=== PATIENT | female | born 2000 | race Caucasian/White ===

== ENCOUNTER 2023-12-05 22:19 | Emergency (ER) | payer OTHER, SELFPAY ==
[2023-12-05 22:24] VITALS: BP 168/120
[2023-12-05 22:38] LABS: % Basophils 0.7 % (0-2); % Immature Granulocytes 0.5 % (0-0.5); % Lymphocytes 37.3 % (20.5-51.1); % Neutrophils 57.5 % (42.2-75.2); Absolute Basophils 0.1 10^3/uL (0-0.2); Absolute Immature Granulocytes 0.1 10^3/uL (0-0.05); Absolute Lymphocytes 6.6 10^3/uL (1.2-3.4); Absolute Monocytes 0.7 10^3/uL (0.1-0.6); Absolute Neutrophils 10.2 10^3/uL (1.4-6.5); Hematocrit 43.2 % (37.0-47.0); Mean Corpuscular Hgb 30.8 pg (27.0-31.0); Mean Corpuscular Volume 83.2 fL (81.0-99.0); Mean Platelet Volume 8.4 fL (7.4-10.4); Nucleated Red Blood Cells % 0 %; Platelet Count 526 10^3/uL (130-400); Red Blood Cell Count 5.19 10^6/uL (4.20-5.40); Red Cell Dist. Width 12.1 % (11.5-14.5); White Blood Cell Count 17.6 10^3/uL (4.8-10.8)
[2023-12-05] MEDS: ATIVAN 1 MG PO (22:43)
[2023-12-05 22:53] LABS: ALT (SGPT) 28 U/L (0-35); AST (SGOT) 48 U/L (14-36); Albumin 5.4 g/dl (3.5-5.0); Alkaline Phosphatase 86 U/L (38-126); Blood Urea Nitrogen 11 mg/dl (7-17); Calcium 9.3 mg/dl (8.4-10.2); Carbon Dioxide 17 mmol/L (22-30); Chloride 105 mmol/L (98-107); Glucose 102 mg/dl (70-99); Potassium 4.6 mmol/L (3.5-5.1); Sodium 137 mmol/L (135-145); Total Bilirubin 0.9 mg/dl (0.2-1.3); Total Protein 8.8 g/dl (6.3-8.2); eGFR > 60.00
[2023-12-05 23:03] LABS: Alcohol 332 mg/dl
[2023-12-05] MEDS: ZOFRAN 4 MG IV (23:39)
[2023-12-05] MEDS: NSS 1000 IV (23:40)
--- NOTE | 2023-12-05 23:41 | ED.GENMED ---
History of Present Illness
General
Chief Complaint: Alcohol Problem
Source: patient
Exam Limitations: none
Time Seen by Provider: 12/05/23 22:54
Travel History
Have you had any contact with someone who has COVID-19?: No
Do you have any symptoms of coronavirus? Fever > 100 degrees, chills, cough, shortness of breath, sore throat, loss of taste or smell, muscle aches, or headache?: No
History of Present Illness
History of Present Illness:
This is a 23 year old female that comes in with c/o alcohol withdraw. States that she just got out of 90 days of Rehab. States that she fell off the wagon and started drinking on . Patient and significant other states that she drinks 2
gallons of wine daily. States that she has been clean for 80 days. States that she is nauseated and vomiting, has a headache and dizziness. Denies any fever, chills, chest pain, SOB, diarrhea, urinary burning.
Past History
Past History
ED Past Medical History: Seizures, Psychiatric (Anxiety/depression) and Other (Alcohol abuse, alcohol withdrawal seizures, IBS, )
ED Past Surgical History: Orthopedic (Right knee)
Social History
Tobacco: Vaping
Alcohol: Daily (Wine 2-3 gallon bottles daily)
Drug: None
Personal: Single
Living: with family (Lives with significant other)
Employment: Not employed
Family History
Family History: Other (Both parents reportedly alcoholics)
Review of Systems
Review of Systems
All Other Systems: ROS reviewed and negative except as documented in HPI and ROS
Constitutional: Reports no symptoms; Denies fever or chills
EENT: Reports no symptoms
Respiratory: Reports no symptoms; Denies cough or trouble breathing
Cardiac: Reports no symptoms; Denies chest pain
ABD/GI: Reports nausea and vomiting; Denies abdominal pain or diarrhea
: Denies dysuria, frequency or urgency
Musculoskeletal: Reports no symptoms
Skin: Reports no symptoms
Neurological: Reports dizzy and headache
Psychiatric: Reports no symptoms
Phy Exam
General Physical Exam
General Presentation: no apparent distress (Patient stops gagging upon entering the room, Held a conversation without any nausea or vomiting)
General age: appears stated age
General Skin: warm and dry
General Habitus: normal
General Mental: alert
General Hydration: appears well hydrated
ENT Exam
ENT Exam: TM's normal, pharynx normal and neck supple
Eye Exam
Eye Exam: EOMI
Cardiovascular Exam
Cardiovascular Exam: no edema, no murmur, normal peripheral pulses and tachycardia
Pulmonary Exam
Pulmonary Exam: lungs clear, no respiratory distress, no rales, chest non tender, no crackles, no rhonchi, no wheezing and no cough
Gastrointestinal Exam
Gastrointestinal Exam: normal bowel sounds, non tender, soft, no organomegaly, no pulsatile mass and non distended
Musculoskeletal Exam
Musculoskeletal Exam: full ROM and no edema
Skin Exam
Skin Exam: normal color, warm/dry, no rash and no petechia
Psychiatric Exam
Psychiatric Exam: anxious
Scores
Withdrawal Assessment of Alcohol
Withdrawal Assessment Completed?: No
Course
Orders/Labs/Results
Orders:
Orders
12/05/23 22:32
Alcohol Urgent
CMP [Comprehensive Metabolic Panel] Urgent
Complete Blood Count/With Diff Urgent
HCG, Serum Qualitative Screen Urgent
Comment: ADD ON
12/05/23 22:42
Lorazepam [Ativan] 1 mg PO NOW STA
12/05/23 23:20
0.9% Sodium Chloride 1000 ml [Nss] 1,000 ml IV BOLUS
Ondansetron Injectable [Zofran] 4 mg IV NOW STA
12/05/23 23:40
Add On- LAB Urgent
Tests Added?: HCG
12/05/23 23:44
Pantoprazole [Protonix IV] 40 mg IV NOW STA
12/06/23 00:00
Diphenhydramine [Benadryl] 50 mg IV NOW STA
Prochlorperazine [Compazine] 5 mg IV NOW STA
Abnormal Lab Results
12/05/23
22:32
WBC 17.6 H 10^3/uL
(4.8-10.8)
Plt Count 526 H 10^3/uL
(130-400)
Abs Immat Gran (auto) 0.1 H 10^3/uL
(0-0.05)
Absolute Neuts (auto) 10.2 H 10^3/uL
(1.4-6.5)
Absolute Lymphs (auto) 6.6 H 10^3/uL
(1.2-3.4)
Absolute Monos (auto) 0.7 H 10^3/uL
(0.1-0.6)
Carbon Dioxide 17 L mmol/L
(22-30)
Creatinine 0.5 L mg/dL
(0.6-1.0)
Glucose 102 H mg/dl
(70-99)
AST 48 H U/L
(14-36)
Total Protein 8.8 H g/dl
(6.3-8.2)
Albumin 5.4 H g/dl
(3.5-5.0)
12/05/23 22:32
12/05/23 22:32
Leukocytosis, Plt elevated. carbon dioxide low. Glucose nonfasting, AST 3elevation. Total protein elevation. Albumin slightly elevated. Alcohol level 332
HCG negative
Vital Signs
Initial and Last Documented VS:
Initial Vital Signs
Temp Pulse Resp BP Pulse Ox
98.4 F 140 28 168/120 97
12/05/23 22:24 12/05/23 22:24 12/05/23 22:24 12/05/23 22:24 12/05/23 22:24
Last Documented Vital Signs
Temp Pulse Resp BP Pulse Ox
98.4 F 121 16 146/96 94
12/05/23 22:24 12/06/23 00:22 12/06/23 00:22 12/05/23 23:49 12/05/23 23:49
MDM/Problems Addressed
Differential Diagnosis Includes:
Alcohol intoxication, Alcohol abuse
MDM/Problems Addressed:
This is a 23 year old female that has been seen in the Emergency room before with alcohol abuse. States that she has been clean for 80 days and she fell off the wagon. Significant other states that she started to drink on and has been
drinking 2 gallon bottles of wine daily.
Will check labs, give IV fluids and Antiemetics. Patient was also given Ativan by Dr. Faustin
Patient decided that she was leaving AMA. Patient was not gagging or vomiting and able to walk out without any issues. States that she is going to another Hospital as she wanted Phenobarbital and that 'always works for her' States that she is going
to another Hospital. Weston saw patient and is walking with patient to talk with her in the waiting room.
Weston stated that patient did not want inpatient help and left.
Chronic conditions affecting care:
Chronic alcohol use
Acute Exacerbation and/or Progression of Chronic Illness:
Chronic alcohol abuse
*Pulse Oximetry
Patient hypoxic: no
*EKG
Interpreted by ED Provider?: NA
Rate: EKG- N/A
*Grader Meat Interpretation
Rate: Grader Meat- N/A
*Critical Care Note
Total Time (30-74mins, 75-104mins- exclusive of procedures): Not Applicable
ED Attending Note
-
Portions of this chart may have been created with voice recognition software.� Occasional wrong word or��sound alike� substitutions may have occurred due to the inherent limitations of voice recognition software.
Discharge Plan
Departure
Patient Disposition: Against Medical Advice
Date of Disposition: 12/06/23
Time of Disposition: 01:21
Patient with high blood pressure during this ER visit?: Yes
Condition: Good
Covid-19: Not Applicable
Discharge Problem:
Alcohol intoxication
Instructions: BLOOD PRESSURE, Alcohol Use Disorder (DC), Alcohol Intoxication ED
Prescriptions:
No Action
gabapentin 300 mg Capsule
300 mg PO BID
Patient Comments:
Was on 300 mg am 300 mg afternoon 600mg HS but prescription was running out so patient has been taking 300 mg HS
folic acid 1 mg tablet
1 mg PO DAILY
naltrexone 50 mg Tablet
50 mg PO DAILY
cyanocobalamin (vitamin B-12) 1,000 mcg Tablet
1,000 mcg PO DAILY
acetaminophen 325 mg Tablet
650 mg PO Q6HPRN PRN (Reason: mild pain/ fever>100.5F) Qty: 0 0RF
lidocaine 4 % Adhesive Patch,Medicated
1 patch topical DAILY Qty: 0 0RF
hydroxyzine HCl 25 mg Tablet
50 mg PO HS Qty: 0 0RF
Referrals:
NONE,* [Family Provider] -
Interventions
Interventions:
*Risk Screen - Suicide Last Done: 12/05/23 22:24
*Neglect/Abuse Screening Last Done: 12/05/23 22:24
ED- Fall Risk Assessment Last Done: 12/05/23 23:35
ED- Neurological Assessment Last Done: 12/05/23 23:35
ED-Psychological Assessment Last Done: 12/05/23 23:35
[2023-12-05 23:49] VITALS: BP 146/96
[2023-12-06] MEDS: BENADRYL 50 MG IV (00:15)
[2023-12-06] MEDS: PROTONIX IV 40 MG IV (00:17)
[2023-12-06] MEDS: COMPAZINE 5 MG IV (00:19)
[2023-12-06 00:21] VITALS: BP 113/52
[2023-12-06 00:53] LABS: HCG, Serum Qualitative Screen Negative
== END 2023-12-06 01:12 | disposition left against medical advice (07) ==
LOC: EMR 22:19
PROVIDERS: Emergency Medicine; EMERGENCY PHYSICIAN Emergency Medicine
DX: F10.129 Alcohol abuse with intoxication, unspecified (principal); F17.290 Nicotine dependence, other tobacco product, uncomplicated; R03.0 Elevated blood-pressure reading, without diagnosis of hypertension
CPT/HCPCS: 99284; 96374; 96375 ×3; 96361; 80053; 82077; 84703; 85025

== ENCOUNTER 2023-12-07 20:22 | Inpatient (IN) | payer OTHER, SELFPAY ==
[2023-12-07 16:42] VITALS: BP 138/109
--- NOTE | 2023-12-07 16:49 | ED.GENMED ---
History of Present Illness
<Sarah Thao PA-C - Last Filed: 12/07/23 19:48>
General
Chief Complaint: Alcohol Problem
Source: patient
Exam Limitations: none
Time Seen by Provider: 12/07/23 16:46
Nursing documentation reviewed up to this point in time: agreed with
Travel History
Have you had any contact with someone who has COVID-19?: No
Do you have any symptoms of coronavirus? Fever > 100 degrees, chills, cough, shortness of breath, sore throat, loss of taste or smell, muscle aches, or headache?: No
History of Present Illness
History of Present Illness:
23 year old female with a PMH of alcohol abuse, PTSD, anxiety, depression presenting emergency department today via EMS for concerns of alcohol abuse. Patient boyfriend called EMS because she was very intoxicated and she has been trying to get
help. Patient in the emergency department is very distraught and states that she is very depressed because she is trying to get help for her alcohol abuse but she keeps relapsing. Patient was out of rehab 3 months ago. Patient had one bottle of
wine to drink prior to coming to emergency department, she states that she usually has 1 bottle of wine per day. Patient has nausea, headache, chest pain. She denies any abdominal pain. Patient denies suicidal or homicidal ideation. Patient also
states that she feels flushed, and states that is very sensitive to light. Patient was seen here 2 days ago for the same thing. Patient also seen at [facility] emergency department.
Past History
<Sarah Thao PA-C - Last Filed: 12/07/23 19:48>
Past History
ED Past Medical History: Seizures, Psychiatric (Anxiety/depression) and Other (Alcohol abuse, alcohol withdrawal seizures, IBS, )
ED Past Surgical History: Orthopedic (Right knee)
Social History
Tobacco: Vaping
Alcohol: Daily (Wine 2-3 gallon bottles daily)
Drug: None
Personal: Single
Living: with family (Lives with significant other)
Employment: Not employed
Family History
Family History: Other (Both parents reportedly alcoholics)
Review of Systems
<Sarah Thao PA-C - Last Filed: 12/07/23 19:48>
Review of Systems
All Other Systems: ROS reviewed and negative except as documented in HPI and ROS
Phy Exam
<Sarah Thao PA-C - Last Filed: 12/07/23 19:48>
Physical Exam
Physical Exam:
Vitals: Patient is tachycardic and hypertensive
General: Patient appears anxious and is crying
Skin: Cheeks are flushed
Head: Normocephalic, atraumatic
Cardiac: Patient is tachycardic, no murmurs, no rubs
Pulm: Normal respiratory effort, no wheezes, rales, or rhonchi
Abdomen: Abdomen is nontender to palpation
Neuro: AAOx3. CN II-XII intact. No focal neurologic deficits.
Scores
<Sarah Thao PA-C - Last Filed: 12/07/23 19:48>
Withdrawal Assessment of Alcohol
Withdrawal Assessment Completed?: Yes
Nausea and Vomiting: Mild nausea with no vomiting
Tactile Disturbances: Moderate itching, pins and needles , burning or numbness
Tremor: No tremor
Auditory Disturbances: Not present
Paroxysmal Sweats: No sweat visible
Visual Disturbances: Moderate sensitivity (photophobia)
Anxiety: Moderately anxious, or guarded, so anxiety is inferred
Headache, Fullness in Head: Moderate
Agitation: Moderately fidgety and restless
Orientation and clouding of sensorium: Oriented and can do serial additions
Total CIWA Score: 18
Alcohol Withdrawal Medication Recommendation: Equal to MSAS Score 8-11. Lorazepam 1-2mg IV NOW & re-assess q1hr
<Angelo Loyola DO - Last Filed: 12/07/23 21:01>
Withdrawal Assessment of Alcohol
Total CIWA Score: 18
Alcohol Withdrawal Medication Recommendation: Equal to MSAS Score 8-11. Lorazepam 1-2mg IV NOW & re-assess q1hr
Course
<Sarah Thao PA-C - Last Filed: 12/07/23 19:48>
Orders/Labs/Results
Orders:
Orders
12/07/23 17:16
Alcohol Urgent
Complete Blood Count/With Diff Urgent
Comprehensive Metabolic Panel Urgent
12/07/23 17:22
Lorazepam [Ativan] 1 mg IV NOW STA
12/07/23 18:29
0.9% Sodium Chloride 1000 ml [Nss] 1,000 ml IV BOLUS
12/07/23 18:49
0.9% Sodium Chloride 1000 ml [Nss] 1,000 ml IV BOLUS
12/07/23 19:01
Prochlorperazine [Compazine] 5 mg IV NOW STA
12/07/23 19:17
Electrocardiogram (*1) Urgent
Reason for Study: Chest Pain
EKG- Treatment ONCE
12/07/23 19:34
Troponin I Urgent
12/07/23 19:57
Admit/Transfer Patient As Directed
Co-Sign Provider:
Level of Care: Inpatient admission
Assign to:: IMU- Intermediate Care
Physician / Group: suresh
Diagnosis: alcohol withdrawal
Reason for Hospitalization: alcohol withdrawal
Expected length of stay greater than two midnights?: Yes
ELOS- Estimated Length of Stay in days: 2
I certify the patient meets the requirements for IP care: Yes
Code Status As Directed
Resuscitation Status: Full Code
12/07/23 20:03
B-Hydroxybutyrate Urgent
Magnesium Urgent
Phosphorus Urgent
0.9% Sodium Chloride [Nss (Preservative Free)] See Protocol IV PRN PRN
FOLic ACID [Folvite] 1 mg 0.9% Sodium Chloride 50 ml [Nss] 50 ml IV DAILYPRN
Lorazepam [Ativan] 1 mg IV Q1HPRN PRN
Lorazepam [Ativan] 1 mg PO Q2HPRN PRN
Lorazepam [Ativan] 2 mg IV Q1HPRN PRN
Phenobarbital Sodium [Phenobarbital] 260 mg 0.9% Sodium Chloride 100 ml [Nss] 100 ml IV NOW
MSAS SCORE As Directed
MSAS Score 0-4: Repeat MSAS every 2 hours until 0-4 for three consecutive assessments, then every 4 hours x 48
hours.
MSAS Score 5-7: For MILD withdrawl symptoms. Repeat MSAS and RASS every 2 hours
MSAS Score 8-11: For MODERATE withdrawal symptoms. Repeat MSAS and RASS every 1 hour. Consider ICU or IMU
level of care.
MSAS Score > 11: For SEVERE withdrawal symptoms. Repeat MSAS and RASS every 1 hour. Notify provider, consider
ICU level of care.
MSAS Additional Instructions: If no improvement or no decrease in score from severe to moderate within 12
hours, consult psychiatry
MSAS Notify Provider: Notify provider if patient requires more than 10 mg of Lorazepam in eight hour period.
12/07/23 20:05
Sodium Bicarbonate 50 meq IV NOW STA
12/07/23 20:06
Pantoprazole [Protonix] 40 mg PO DAILY STA
12/07/23 21:00
Dextrose 5%/0.9%Sodchl 1000 ml [D5/0.9% Sodium Chloride] 1,000 ml IV 100 mls/hr
Thiamine Injection 200 mg IV Q12
12/08/23 08:00
FOLic ACID [Folvite] 1 mg PO DAILY
Phenobarbital Sodium [Phenobarbital] 97.5 mg IV TID
12/10/23 08:00
Phenobarbital [Luminal] 64.8 mg PO TID
12/10/23 20:00
Thiamine HCl [Vitamin B1] 100 mg PO BID
12/12/23 08:00
Phenobarbital [Luminal] 32.4 mg PO TID
Abnormal Lab Results
12/07/23
17:16
Plt Count 460 H 10^3/uL
(130-400)
Absolute Lymphs (auto) 5.0 H 10^3/uL
(1.2-3.4)
Neutrophils % 39.8 L %
(42.2-75.2)
Lymphocytes % 54.7 H %
(20.5-51.1)
Carbon Dioxide 14 L* mmol/L
(22-30)
Creatinine 0.5 L mg/dL
(0.6-1.0)
AST 45 H U/L
(14-36)
Total Protein 8.4 H g/dl
(6.3-8.2)
Albumin 5.2 H g/dl
(3.5-5.0)
12/07/23 17:16
12/07/23 17:16
Vital Signs
Initial and Last Documented VS:
Initial Vital Signs
Temp Pulse Resp BP Pulse Ox
97.9 F 117 16 138/109 95
12/07/23 16:42 12/07/23 16:42 12/07/23 16:42 12/07/23 16:42 12/07/23 16:42
Last Documented Vital Signs
Temp Pulse Resp BP Pulse Ox
97.9 F 117 16 138/109 93
12/07/23 16:42 12/07/23 16:42 12/07/23 16:42 12/07/23 16:42 12/07/23 16:42
<Angelo Loyola, DO - Last Filed: 12/07/23 21:01>
Orders/Labs/Results
Orders:
Orders
12/07/23 17:16
Alcohol Urgent
Complete Blood Count/With Diff Urgent
Comprehensive Metabolic Panel Urgent
12/07/23 17:22
Lorazepam [Ativan] 1 mg IV NOW STA
12/07/23 18:29
0.9% Sodium Chloride 1000 ml [Nss] 1,000 ml IV BOLUS
12/07/23 18:49
0.9% Sodium Chloride 1000 ml [Nss] 1,000 ml IV BOLUS
12/07/23 19:01
Prochlorperazine [Compazine] 5 mg IV NOW STA
12/07/23 19:17
Electrocardiogram (*1) Urgent
Reason for Study: Chest Pain
EKG- Treatment ONCE
12/07/23 19:34
Troponin I Urgent
12/07/23 19:57
Admit/Transfer Patient As Directed
Co-Sign Provider:
Level of Care: Inpatient admission
Assign to:: IMU- Intermediate Care
Physician / Group: suresh
Diagnosis: alcohol withdrawal
Reason for Hospitalization: alcohol withdrawal
Expected length of stay greater than two midnights?: Yes
ELOS- Estimated Length of Stay in days: 2
I certify the patient meets the requirements for IP care: Yes
Code Status As Directed
Resuscitation Status: Full Code
12/07/23 20:03
B-Hydroxybutyrate Urgent
Magnesium Urgent
Phosphorus Urgent
0.9% Sodium Chloride [Nss (Preservative Free)] See Protocol IV PRN PRN
FOLic ACID [Folvite] 1 mg 0.9% Sodium Chloride 50 ml [Nss] 50 ml IV DAILYPRN
Lorazepam [Ativan] 1 mg IV Q1HPRN PRN
Lorazepam [Ativan] 1 mg PO Q2HPRN PRN
Lorazepam [Ativan] 2 mg IV Q1HPRN PRN
Phenobarbital Sodium [Phenobarbital] 260 mg 0.9% Sodium Chloride 100 ml [Nss] 100 ml IV NOW
MSAS SCORE As Directed
MSAS Score 0-4: Repeat MSAS every 2 hours until 0-4 for three consecutive assessments, then every 4 hours x 48
hours.
MSAS Score 5-7: For MILD withdrawl symptoms. Repeat MSAS and RASS every 2 hours
MSAS Score 8-11: For MODERATE withdrawal symptoms. Repeat MSAS and RASS every 1 hour. Consider ICU or IMU
level of care.
MSAS Score > 11: For SEVERE withdrawal symptoms. Repeat MSAS and RASS every 1 hour. Notify provider, consider
ICU level of care.
MSAS Additional Instructions: If no improvement or no decrease in score from severe to moderate within 12
hours, consult psychiatry
MSAS Notify Provider: Notify provider if patient requires more than 10 mg of Lorazepam in eight hour period.
12/07/23 20:05
Sodium Bicarbonate 50 meq IV NOW STA
12/07/23 20:06
Pantoprazole [Protonix] 40 mg PO DAILY STA
12/07/23 21:00
Dextrose 5%/0.9%Sodchl 1000 ml [D5/0.9% Sodium Chloride] 1,000 ml IV 100 mls/hr
Thiamine Injection 200 mg IV Q12
12/08/23 08:00
FOLic ACID [Folvite] 1 mg PO DAILY
Phenobarbital Sodium [Phenobarbital] 97.5 mg IV TID
12/10/23 08:00
Phenobarbital [Luminal] 64.8 mg PO TID
12/10/23 20:00
Thiamine HCl [Vitamin B1] 100 mg PO BID
12/12/23 08:00
Phenobarbital [Luminal] 32.4 mg PO TID
Abnormal Lab Results
12/07/23
17:16
Plt Count 460 H 10^3/uL
(130-400)
Absolute Lymphs (auto) 5.0 H 10^3/uL
(1.2-3.4)
Neutrophils % 39.8 L %
(42.2-75.2)
Lymphocytes % 54.7 H %
(20.5-51.1)
Carbon Dioxide 14 L* mmol/L
(22-30)
Creatinine 0.5 L mg/dL
(0.6-1.0)
AST 45 H U/L
(14-36)
Total Protein 8.4 H g/dl
(6.3-8.2)
Albumin 5.2 H g/dl
(3.5-5.0)
12/07/23 17:16
12/07/23 17:16
Vital Signs
Initial and Last Documented VS:
Initial Vital Signs
Temp Pulse Resp BP Pulse Ox
97.9 F 117 16 138/109 95
12/07/23 16:42 12/07/23 16:42 12/07/23 16:42 12/07/23 16:42 12/07/23 16:42
Last Documented Vital Signs
Temp Pulse Resp BP Pulse Ox
97.9 F 117 16 138/109 93
12/07/23 16:42 12/07/23 16:42 12/07/23 16:42 12/07/23 16:42 12/07/23 16:42
<Sarah Thao PA-C - Last Filed: 12/07/23 19:48>
MDM/Problems Addressed
Differential Diagnosis Includes:
Differentials include alcohol intoxication, alcohol withdrawal, panic attack, ACS, SCAD
MDM/Problems Addressed:
chest pain
alcoholism
Chronic conditions affecting care: Psychiatric illness
Acute Exacerbation and/or Progression of Chronic Illness: Psychiatric illness
<aSrah Thao PA-C - Last Filed: 12/07/23 19:48>
*Critical Care Note
Total Time (30-74mins, 75-104mins- exclusive of procedures): Not Applicable
<Sarah Thao PA-C - Last Filed: 12/07/23 19:48>
Patient Management
Escalation/DeEscalation of care consider admission/obs:
23 y/o female with a PMH of alcohol abuse, PTSD, depression presenting to the ER today via EMS seeking treatment for her alcohol abuse. She is tachycardia, her CIWA is 18, her bicarb is 14. She has a history of severe withdrawal. Spoke to Amy
who found a bed for patient however patient is at high risk for withdrawal and she needs to be medically stabilized and needs to be monitored. Will admit for observation and frequent withdrawal monitoring. Patient accepted by hospitalist.
<Sarah Thao PA-C - Last Filed: 12/07/23 19:48>
Update Note
Update Note:
5:00 pm-- Spoke to Amy who
ED Attending Note
<Sarah Thao PA-C - Last Filed: 12/07/23 19:48>
-
Portions of this chart may have been created with voice recognition software.� Occasional wrong word or��sound alike� substitutions may have occurred due to the inherent limitations of voice recognition software.
<Angelo Loyola DO - Last Filed: 12/07/23 21:01>
ED Attending Note
Patient seen and examined by attending physician: Yes
I performed the substantive portion of visit, reviewed & personally made and approve the management plan that is documented in note by myself or LEONEL.: Yes
I performed a history and physical exam of patient and discussed management with resident, I reviewed resident's note and agree with documented findings and plan of care.: Yes
ED Attending Note:
The patient has been agitated throughout her stay in the ED. She arrived tachycardic and bicarb only 14. Does not appear to be able to be medically clear tonight. She was also seen by AMY. Planning medical admission.
Discharge Plan
Departure
Patient Disposition: Admit
Date of Disposition: 12/07/23
Time of Disposition: 19:38
Admit to: Med/Surg
Admit to doctor: Dr. Villanueva
Presentation/result/management discussed w/ accepting MD/DO: Hospitalist
Patient with high blood pressure during this ER visit?: Yes
Condition: Fair
Discharge Problem:
Alcohol use disorder, Chest pain
Interventions
Interventions:
*Risk Screen - Suicide Last Done: 12/07/23 16:42
*General Assessment Last Done: 12/07/23 16:42
*Neglect/Abuse Screening Last Done: 12/07/23 16:42
*ED COVID-19 Vaccine History Last Done: 12/07/23 16:42
ED- Neurological Assessment Last Done: 12/07/23 17:25
ED-Psychological Assessment Last Done: 12/07/23 18:40
[2023-12-07 16:50] VITALS: BMI 34.7
[2023-12-07 17:24] LABS: % Basophils 1.4 % (0-2); % Eosinophils 0.3 % (0-6); % Immature Granulocytes 0.2 % (0-0.5); % Lymphocytes 54.7 % (20.5-51.1); % Monocytes 3.6 % (1.7-9.3); % Neutrophils 39.8 % (42.2-75.2); Absolute Basophils 0.1 10^3/uL (0-0.2); Absolute Monocytes 0.3 10^3/uL (0.1-0.6); Absolute Neutrophils 3.6 10^3/uL (1.4-6.5); Hemoglobin 14.9 g/dL (12.0-16.0); Mean Corp Hgb Conc. 36.3 g/dL (33.0-37.0); Mean Corpuscular Hgb 30.7 pg (27.0-31.0); Mean Corpuscular Volume 84.4 fL (81.0-99.0); Mean Platelet Volume 8.8 fL (7.4-10.4); Nucleated Red Blood Cells % 0 %; Platelet Count 460 10^3/uL (130-400); Red Blood Cell Count 4.86 10^6/uL (4.20-5.40); Red Cell Dist. Width 12.2 % (11.5-14.5); White Blood Cell Count 9.1 10^3/uL (4.8-10.8)
[2023-12-07] MEDS: ATIVAN 1 MG IV (17:38)
[2023-12-07 17:57] LABS: ALT (SGPT) 29 U/L (0-35); AST (SGOT) 45 U/L (14-36); Albumin 5.2 g/dl (3.5-5.0); Alcohol 389 mg/dl; Alkaline Phosphatase 82 U/L (38-126); Blood Urea Nitrogen 8 mg/dl (7-17); Calcium 9.2 mg/dl (8.4-10.2); Carbon Dioxide 14 mmol/L (22-30); Chloride 105 mmol/L (98-107); Estimated Creatinine Clearance > 125 ml/min; Glucose 88 mg/dl (70-99); Potassium 4.9 mmol/L (3.5-5.1); Sodium 141 mmol/L (135-145); Total Bilirubin 0.9 mg/dl (0.2-1.3); Total Protein 8.4 g/dl (6.3-8.2); eGFR > 60.00
[2023-12-07] MEDS: NSS 1000 IV ×2 (19:23→22:02)
[2023-12-07] MEDS: COMPAZINE 5 MG IV (19:23)
--- NOTE | 2023-12-07 20:07 | HPS.HSE ---
Family Physician
-
Family Physician: * NONE
Chief Complaint
-
alcohol withdrawal
History of Present Illness
23-year-old female past medical history of alcohol abuse, PTSD, anxiety, depression, alcohol withdrawal seizures, IBS, arrhythmias presenting for concerns for alcohol abuse. Patient's boyfriend called EMS because she was very intoxicated. Patient
is very depressed but she is trying to get help for her alcohol abuse she keeps relapsing. She was out of rehab 3 months ago. She usually has 3 bottles of wine per day which she had shortly prior to coming into the emergency room. She has nausea
and vomiting, headache, dizziness and chest pain and diarrhea and shaking tremors. She denies any abdominal pain. She states her depression has been worse recently but denies any suicidal or homicidal ideation.
Chest pain is worse when she moves. Denies pain like this before. She states that she has a history of cardiac arrhythmias which may have been atrial fibrillation.
She does vape but denies any other drugs.
Medical History
Past Medical History
Past Medical History: Reports Other ( alcohol abuse, PTSD, anxiety, depression, alcohol withdrawal seizures, IBS, arrhythmias)
Past Surgical History: Reports Orthopedic
Social History
Tobacco: Vaping
Alcohol: Daily
Drug: None
Family History
Family History: Not pertinent
Allergies / Home Medications
Allergies reflects when Allergies were last updated in [employer].
Home Medications with original date entered in [employer]
Allergy/Medication List:
Allergies
Allergy/AdvReac Type Severity Reaction Status Date / Time
No Known Allergies Allergy Verified 12/05/23 22:28
Home Medications
folic acid 1 mg tablet 1 mg PO DAILY Supplement 09/03/23
cyanocobalamin (vitamin B-12) 1,000 mcg tablet 1,000 mcg PO DAILY Supplement 09/19/23
naltrexone 50 mg tablet 50 mg PO HS Alcohol Use Disorder 09/19/23
bupropion HCl 300 mg 24 hr tablet, extended release 300 mg PO DAILY 12/07/23
gabapentin 600 mg tablet 600 mg PO TID 12/07/23
melatonin 10 mg tablet 10 mg PO HS PRN sleep 12/07/23
prazosin 1 mg capsule 1 mg PO HS 12/07/23
Review of Systems
-
History Source: Patient
A 12 point ROS was completed and negative except as noted: Yes
Constitutional: Reports No Symptoms
EENT: Reports No Symptoms
Respiratory: Reports No Symptoms
Cardiac: Reports See HPI
Abdomen/GI: Reports See HPI
: Reports No Symptoms
Musculoskeletal: Reports No Symptoms
Skin: Reports No Symptoms
Neurological: Reports No Symptoms
Endocrine: Reports No Symptoms
Hematologic/Lymphatic: Reports No Symptoms
Psych: Reports No Symptoms
Physical Exam
Vital Signs
Vital Signs
Temp Pulse Resp BP Pulse Ox
97.9 F 117 16 138/109 93
12/07/23 16:42 12/07/23 16:42 12/07/23 16:42 12/07/23 16:42 12/07/23 16:42
Physical Exam
General: Well Developed, Well Nourished and No Apparent Distress
HEENT: NormoCephalic, Moist mucous membranes and Atraumatic
Respiratory: Clear
Cardiac: S1/S2 and Regular Rhythm; No Murmur or Rub
GI: Soft, Non Tender, Non Distended and Normal Bowel Sounds; No Organomegaly
Rectal: Deferred by Provider
Musculoskeletal: No Clubbing, No Cyanosis and No Edema
Skin: No Rash
Neuro: Nonfocal/grossly intact
Laboratory Results
-
12/07/23 17:16
12/07/23 17:16
Laboratory Results
Total Bilirubin 0.9 mg/dl (0.2-1.3) 12/07/23 17:16
AST 45 U/L (14-36) H 12/07/23 17:16
ALT 29 U/L (0-35) 12/07/23 17:16
Alkaline Phosphatase 82 U/L (38-126) 12/07/23 17:16
Data Reviewed
-
Lab Data: Labs Reviewed by me
Old Records: Reviewed
Impression/Plan
-
IMPRESSION:
PLAN:
# Severe alcohol withdrawal
-Alcohol level of 390
-Phenobarbital protocol
-Alcohol withdrawal protocol
-Thiamine and folate
-IV fluids
-Check magnesium, phosphorus
-Check EKG
-Continue naltrexone, gabapentin, prazosin
-Patient interested in rehab and seen by Freddy walker
-Hold bupropion given history of alcohol withdrawal seizures
# Anion gap metabolic acidosis likely secondary to alcoholic ketoacidosis
-Check beta-hydroxybutyrate
-Give dose of bicarbonate
-D5 normal saline
# Chest pain likely due to alcohol gastritis/GERD
-Check EKG
-Troponin pending
-Protonix 40 daily
# Likely alcohol related diarrhea
# History of diarrhea predominant IBS
-Continue to monitor
History of alcohol withdrawal seizures
-Hold bupropion
History of arrhythmia
Anxiety/depression/PTSD
-Hold bupropion given history of heavy alcohol drinking and potential to lower seizure threshold
-Psychiatry consulted
Vaping history
Full code
DVT prophylaxis�heparin
Regular diet
[2023-12-07 20:15] LABS: Troponin I < 0.012 ng/ml
[2023-12-07] MEDS: PHENOBARBITAL 104 MG IV (20:39)
[2023-12-07] MEDS: SODIUM BICARBONATE 50 MEQ IV (20:57)
[2023-12-07] MEDS: PROTONIX 40 MG PO (20:57)
[2023-12-07 21:00] VITALS: BP 134/74
[2023-12-07] MEDS: THIAMINE INJECTION 200 MG IV (21:00)
[2023-12-07] MEDS: ATIVAN 1 MG PO (22:07)
[2023-12-07 22:43] LABS: Phosphorus 4.9 mg/dl (2.5-4.5)
[2023-12-07 22:45] LABS: B-Hydroxybutyrate 0.16 mmol/L (0.02-0.27)
[2023-12-08] VITALS (12 sets, daily range): BP systolic 93–138; BP diastolic 64–99; BMI 32.5
[2023-12-08] MEDS: D5/0.9% SODIUM CHLORIDE 1000 IV ×3 (00:35→20:13)
[2023-12-08] MEDS: REVIA 50 MG PO (01:12)
[2023-12-08] MEDS: ATIVAN 1 MG PO ×2 (01:12→03:19)
[2023-12-08] MEDS: HEPARIN 5000 UNITS SC ×3 (01:12→20:14)
[2023-12-08] MEDS: MINIPRESS 1 MG PO (01:12)
--- NOTE | 2023-12-08 02:14 | PTCARENOTE ---
Received pt from ED RN. Pt is AAOx3, anxious, MSAS (per protocol - see MAR). Sinus tach on the monitor. on RA O2 sat 94%, lungs clear. BRP x1. D5 NS infusing @ 100 ml/hr. Bed alarm in place. CHG in place. Pt is laying comfortable in bed with call
garcia in reach.
[2023-12-08] MEDS: ZOFRAN 4 MG IV ×3 (03:19→16:06)
[2023-12-08] MEDS: PHENOBARBITAL 97.5 MG IV ×3 (04:01→20:07)
[2023-12-08 04:33] LABS: % Basophils 0.8 % (0-2); % Eosinophils 0.1 % (0-6); % Immature Granulocytes 0.1 % (0-0.5); % Monocytes 5.9 % (1.7-9.3); % Neutrophils 49.1 % (42.2-75.2); Absolute Basophils 0.1 10^3/uL (0-0.2); Absolute Lymphocytes 3.8 10^3/uL (1.2-3.4); Absolute Monocytes 0.5 10^3/uL (0.1-0.6); Absolute Neutrophils 4.2 10^3/uL (1.4-6.5); Hematocrit 35.6 % (37.0-47.0); Hemoglobin 12.4 g/dL (12.0-16.0); Mean Corp Hgb Conc. 34.8 g/dL (33.0-37.0); Mean Corpuscular Hgb 30.2 pg (27.0-31.0); Mean Corpuscular Volume 86.8 fL (81.0-99.0); Nucleated Red Blood Cells % 0 %; Platelet Count 343 10^3/uL (130-400); Red Cell Dist. Width 11.9 % (11.5-14.5); White Blood Cell Count 8.6 10^3/uL (4.8-10.8)
[2023-12-08 05:06] LABS: ALT (SGPT) 22 U/L (0-35); AST (SGOT) 32 U/L (14-36); Alkaline Phosphatase 63 U/L (38-126); Blood Urea Nitrogen 8 mg/dl (7-17); Calcium 8.5 mg/dl (8.4-10.2); Carbon Dioxide 19 mmol/L (22-30); Chloride 105 mmol/L (98-107); Estimated Creatinine Clearance > 125 ml/min; Glucose 99 mg/dl (70-99); Potassium 4.1 mmol/L (3.5-5.1); Sodium 135 mmol/L (135-145); Total Bilirubin 1.2 mg/dl (0.2-1.3); Total Protein 6.5 g/dl (6.3-8.2); eGFR > 60.00
[2023-12-08] MEDS: ATIVAN 1 MG IV ×5 (05:23→20:09)
[2023-12-08] MEDS: NSS (PRESERVATIVE FREE) 0.25 ML IV (06:22)
[2023-12-08] MEDS: ATIVAN 2 MG IV (07:28)
[2023-12-08] MEDS: NSS (PRESERVATIVE FREE) 1 ML IV ×3 (07:28→15:53)
--- NOTE | 2023-12-08 08:12 | W.PN.HOSP.TC ---
Today's Communication/Plan
-
see bold
Assessment / Plan
Assessment / Plan
Pt seen and examined with nurse Jair Diaz present at bedside:
Gen: NAD, Awake and alert
Eyes: EOMI, PERRLA, no scleral icterus.
Neck: supple.
CV: tachy, reg rhythm, +S1/S2, no m/r/g.
Resp: CTAB, no rales, wheezes, or rhonchi.
Abd: +BS, soft, NT, ND
Skin: No rashes.
Neuro: CN 2-12 intact, non-focal, tremors in LEs.
Psych: slightly anxious
Severe alcohol withdrawal/DTs:
-Alcohol level of 390 on admission
-cont Phenobarbital protocol
-cont MSAS (thiamine/folate/PRN Ativan)
-Thiamine and folate
-cont IVFs
-Continue naltrexone, gabapentin, prazosin
-Patient interested in rehab and seen by Freddy walker
-Holding bupropion given history of alcohol withdrawal seizures
-currently pt asking for phenobarbital early. Will give Serax 15mg x 1 now.
Anion gap metabolic acidosis:
-likely secondary to alcoholic ketoacidosis
-beta-hydroxybutyrate normal
-Given a dose of bicarbonate
-improving with D5NS
Other problems:
Chest pain: likely due to alcohol gastritis/GERD, Troponin NEG, cont Protonix
h/o diarrhea predominant IBS
h/o alcohol withdrawal seizures: Holding bupropion
History of arrhythmia
Anxiety/depression/PTSD: Holding bupropion given history of heavy alcohol drinking and potential to lower seizure threshold. Psychiatry consulted.
Vaping history
Obesity due to excess calories
FULL/heparin
Anticipated Discharge: > 48 hours
Subjective/Interval History
-
Date of Service: December 08, 2023
Reports W/D sxs including tremors, hallucinations, diaphoresis.
Objective Data
-
Labs:
Laboratory Results
12/08/23
04:09
WBC 8.6
Hgb 12.4
Hct 35.6 L
Plt Count 343 D
Sodium 135
Potassium 4.1
Chloride 105
Carbon Dioxide 19 L
BUN 8
Creatinine 0.4 L
Glucose 99
Calcium 8.5
Total Bilirubin 1.2
AST 32
ALT 22
Alkaline Phosphatase 63
Vital Signs:
Vital Signs
Temp Pulse Resp BP Pulse Ox
98.2 F 151 23 93/64 96
12/08/23 03:52 12/08/23 06:00 12/08/23 06:00 12/08/23 06:00 12/08/23 06:00
I&O
12/07/23 12/08/23 12/09/23
06:59 06:59 06:59
Intake Total 700 / 700
Balance 700 / 700
[2023-12-08] MEDS: THIAMINE INJECTION 200 MG IV ×2 (08:33→20:12)
[2023-12-08] MEDS: VITAMIN B-12 1000 MCG PO (08:37)
[2023-12-08] MEDS: FOLVITE 1 MG PO (08:37)
[2023-12-08] MEDS: NEURONTIN 600 MG PO (08:37)
[2023-12-08] MEDS: FOLVITE PO (08:48)
--- NOTE | 2023-12-08 09:00 | PTCARENOTE ---
Patient received from historic sites supervisor. Patient resting comfortably in bed. AAO, VSS. Drowsy but arousable, MSAS was 9 at shift change and patient was restless. No complaints of pain, just nausea, Zofran given last at 318. D5NS @ 100mL/hr through
IV. Call garcia in reach.
[2023-12-08] MEDS: SERAX 15 MG PO (10:00)
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
[2023-12-08] MEDS: NEURONTIN 300 MG PO ×2 (15:45→23:14)
--- NOTE | 2023-12-08 16:27 | CM ---
Patient with Dx Severe alcohol withdrawal/DTs. Tox Screen; Etoh 389. Room air. Receiving IVF, IV Phenobarb, IV Ativan.
Met with patient and SO Cayden. Patient remained sleeping throughout.
The patient resides with her SO in a 2 story house.
The patient has been independent in ADLs and ambulation.
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
The patient has no DME or prior VN.
[facility] - [facility]
Cayden says that the patient recently did an Inpatient Etoh program with [facility] in Sep 2023. Since then the patient is doing an outpatient program with [facility] including group therapy and individual counseling. Cayden thinks
patient will want to resume.
Plan offer [facility] when patient not actively withdrawing.
[2023-12-08] MEDS: FLEXERIL 5 MG PO (17:58)
[2023-12-09] VITALS (7 sets, daily range): BP systolic 116–164; BP diastolic 81–119
[2023-12-09] MEDS: ATIVAN 1 MG IV ×3 (00:04→23:34)
[2023-12-09] MEDS: NSS (PRESERVATIVE FREE) 0.5 ML IV (02:09)
[2023-12-09] MEDS: PHENOBARBITAL 97.5 MG IV ×3 (05:21→20:18)
[2023-12-09] MEDS: ATIVAN 1 MG PO ×4 (05:21→22:13)
[2023-12-09] MEDS: ATIVAN 2 MG IV (06:12)
[2023-12-09] MEDS: D5/0.9% SODIUM CHLORIDE 1000 IV ×3 (06:16→17:29)
--- NOTE | 2023-12-09 07:44 | W.PN.HOSP.TC ---
Today's Communication/Plan
-
see bold
Assessment / Plan
Assessment / Plan
Pt seen and examined with nurse Adriane Martinez present at bedside:
Gen: NAD, Awake and alert
Eyes: EOMI, no scleral icterus.
Neck: supple.
CV: remains tachy, reg rhythm, +S1/S2, no m/r/g.
Resp: remains CTAB, no rales, wheezes, or rhonchi.
Abd: +BS, soft, NT, ND
Skin: No rashes.
Neuro: CN 2-12 intact, non-focal, tremors in LEs.
Psych: calm
Severe alcohol withdrawal/DTs:
-Alcohol level of 390 on admission
-cont Phenobarbital protocol
-cont MSAS (thiamine/folate/PRN Ativan)
-Thiamine and folate
-cont IVFs
-Continue naltrexone, gabapentin, prazosin
-Patient interested in rehab and seen by Freddy walker
-Holding bupropion given history of alcohol withdrawal seizures
Anion gap metabolic acidosis:
-likely secondary to alcoholic ketoacidosis
-beta-hydroxybutyrate normal
-Given a dose of bicarbonate
-improving with D5NS
Other problems:
Chest pain: likely due to alcohol gastritis/GERD, Troponin NEG, cont Protonix
h/o diarrhea predominant IBS
h/o alcohol withdrawal seizures: Holding bupropion
History of arrhythmia
Anxiety/depression/PTSD: Holding bupropion given history of heavy alcohol drinking and potential to lower seizure threshold. Psychiatry consulted.
Vaping history
Obesity due to excess calories
FULL/heparin
Anticipated Discharge: 24 - 48 hours
Subjective/Interval History
-
Date of Service: December 09, 2023
c/o abd pain and 'shakes.'
Objective Data
-
Vital Signs:
Vital Signs
Temp Pulse Resp BP Pulse Ox
98.9 F 112 15 130/119 98
12/09/23 07:34 12/09/23 06:00 12/09/23 06:00 12/09/23 06:00 12/09/23 06:00
I&O
12/08/23 12/09/23 12/10/23
06:59 06:59 06:59
Intake Total 700 / 700 1440 / 1440
Balance 700 / 700 1440 / 1440
[2023-12-09 09:06] LABS: Blood Urea Nitrogen 4 mg/dl (7-17); Calcium 8.3 mg/dl (8.4-10.2); Carbon Dioxide 23 mmol/L (22-30); Chloride 108 mmol/L (98-107); Estimated Creatinine Clearance > 125 ml/min; Glucose 140 mg/dl (70-99); Potassium 3.9 mmol/L (3.5-5.1); Sodium 134 mmol/L (135-145); eGFR > 60.00
[2023-12-09] MEDS: NEURONTIN 300 MG PO ×3 (09:06→20:17)
[2023-12-09] MEDS: FOLVITE 1 MG PO (09:06)
[2023-12-09] MEDS: VITAMIN B-12 1000 MCG PO (09:06)
[2023-12-09] MEDS: THIAMINE INJECTION 200 MG IV ×2 (09:07→20:18)
[2023-12-09] MEDS: HEPARIN 5000 UNITS SC ×2 (09:07→20:18)
--- NOTE | 2023-12-09 09:57 | PTCARENOTE ---
pt crying and wailing loudly, stating ' I can't do it'-when asked what is bothering her, she says 'pain, nausea, anxiety'-vague complaints, offered PRN Zofran but pt declines, stating 'it doesn't work'. Will assess MSAS score.
--- NOTE | 2023-12-09 10:11 | CM ---
Patient with Dx Severe alcohol withdrawal/DTs. Tox Screen; Etoh 389. Room air. Receiving IVF, IV Phenobarb, IV Ativan. [facility] protocol.
Spoke with patient this morning who agrees to speak with GREGORIO about her plans to resume [facility] Inpt or Outpt Etoh Rehab. She is not feeling well at present and agrees to speak with GREGORIO later today.
Spoke with GREGORIO [place]; she remembers this patient from her last admission in Sep 2023 for Etoh Use/withdrawal, and she was involved in her d/c plans to [facility]. [facility] or over the weekend.
Plan follow up with GREGORIO to confirm d/c plans.
[2023-12-09] MEDS: ZOFRAN 4 MG IV (10:51)
--- NOTE | 2023-12-09 11:24 | PTCARENOTE ---
Pt shrieking and retching, kicking legs in bed, asking for her 'hourly Ativan' shouting 'I can't do this', telling this RN that we are doing nothing for her and that warehouse shift supervisor was doing everything for her, stated this RN is letting her suffer, now
agreeable to try zofran, stated it 'doesn't ever work anyway' ...Drs. Reddy and Torsten updated. Education provided to patient on appropriate administration of medications. Stated this behavior is known to them -Dr. Corbett will assess when available.
PT asking this RN if she is over 'the worst of it' and stated that she might go home. Safe/restful environment attempted to be maintained, pt is throwing blankets around room and equipment on floor, taking her self off monitoring equipment.
Refusing to sit in chair, will not allow lights on or shades up. Continuing to monitor.
--- NOTE | 2023-12-09 11:57 | PTCARENOTE ---
Pt sleeping upon this assessment, awakened by this RN in the room, now pleasant and agreeable, calling RN 'sweetie' and cooperative. Will monitor.
--- NOTE | 2023-12-09 12:54 | W.PN.UPDATE ---
Update Note
Progress Note Update
patient seen chart reviewed. spoke with nursing. farhana has been upset much of the morning at one point talking about signing out ama. she was able to talk with me about some of her issues. she is very angry with herself for relapsing and she
became tearful for some moments. she felt in some ways things were really looking up in her life and then she used. . she has a bf who is kind and attentive. she has a job she likes. she had some sobriety and she wants to work towards being sober
again. she also expressed anger that she can't go out and go on a three day magallon as others her age can do. pointed out to her that they may be experiencing similar issues if going on a three day magallon is a way of life. we discussed here the
ravages of etoh on every body not just hers. she is iffy about going to inpatient. she could do intensive out pt treatment with aa/sponsor etc. what is important and what we discussed is that she has to work on recognizing and dealing with
triggers to alcohol. there needs to be a plan for the moment she is tempted to use and that is what she needs to work on whether in AA or elsewhere. no changes were made in her medication. continue as currently
--- NOTE | 2023-12-09 14:16 | PTCARENOTE ---
Pt downgraded to med surg. Sleeping since talking with Dr. Corbett. Continuing to monitor.
--- NOTE | 2023-12-09 17:23 | W.PN.UPDATE ---
Update Note
Progress Note Update
Contacted by nursing due to patient being inconsolable, yelling, crying - appears in distress and reporting seeing/feeling bugs. Is on MSAS protocol along with phenobarbital taper, recently received dose of ativan. Placed order for prn risperidone
0.5mg for managing agitation if patient is having distressing hallucinations. Although this is in context of alcohol withdrawal, given that she is already receiving the appropriate alcohol withdrawal treatment, may need short term antipsychotic to
help manage acute agitation.
[2023-12-09] MEDS: RISPERDAL M-TAB (ORALLY DISINTEGRATING) 0.5 MG PO (17:28)
[2023-12-09] MEDS: MELATONIN 10 MG PO (20:17)
[2023-12-10] MEDS: ATIVAN 1 MG PO ×4 (02:20→16:34)
[2023-12-10] MEDS: D5/0.9% SODIUM CHLORIDE 1000 IV (06:41)
[2023-12-10 07:00] VITALS: BP 144/109
[2023-12-10] MEDS: NEURONTIN 300 MG PO ×3 (08:18→20:53)
[2023-12-10] MEDS: LUMINAL 64.7999999999999972 MG PO (08:18)
[2023-12-10] MEDS: FOLVITE 1 MG PO (08:19)
[2023-12-10] MEDS: VITAMIN B-12 1000 MCG PO (08:19)
[2023-12-10] MEDS: HEPARIN 5000 UNITS SC ×2 (08:19→20:52)
[2023-12-10] MEDS: THIAMINE INJECTION 200 MG IV (08:19)
[2023-12-10 09:25] LABS: Blood Urea Nitrogen 5 mg/dl (7-17); Calcium 9.2 mg/dl (8.4-10.2); Carbon Dioxide 24 mmol/L (22-30); Chloride 103 mmol/L (98-107); Estimated Creatinine Clearance > 125 ml/min; Glucose 98 mg/dl (70-99); Potassium 3.9 mmol/L (3.5-5.1); Sodium 135 mmol/L (135-145); eGFR > 60.00
--- NOTE | 2023-12-10 10:28 | W.PN.HOSP.TC ---
Addendum entered and electronically signed by Franky Doyle MD 12/10/23 12:54:
call from Dr. Preciado, recommends to increase Phenobarb back to prior dose and will be seeing later today
Original Note:
Today's Communication/Plan
-
slow IVF
follow labs
continue to watch for withdrawal symptoms
Assessment / Plan
Assessment / Plan
Severe alcohol withdrawal/DTs:
-Alcohol level of 390 on admission
-cont Phenobarbital protocol
received 6th dose of 97.5 mg q8h at 20:18 last night and 1st dose of 64.8 mg today at 8:18
-cont MSAS (thiamine/folate/PRN Ativan)
-Thiamine and folate
-cont IVFs, but slow rate
-Continue naltrexone, gabapentin, prazosin
-Patient interested in rehab and seen by Freddy walker
-Holding bupropion given history of alcohol withdrawal seizures
Anion gap metabolic acidosis:
-likely secondary to alcoholic ketoacidosis
-beta-hydroxybutyrate normal
-Given a dose of bicarbonate
-improving with D5NS, will slow rate
CO2 17-->14-->19-->23-->24
Other problems:
Chest pain: likely due to alcohol gastritis/GERD, Troponin NEG, cont Protonix
h/o diarrhea predominant IBS
h/o alcohol withdrawal seizures: Holding bupropion
History of arrhythmia
Anxiety/depression/PTSD: Holding bupropion given history of heavy alcohol drinking and potential to lower seizure threshold. Psychiatry consulted.
Vaping history
Obesity due to excess calories
FULL/heparin
Anticipated Discharge: > 48 hours
Subjective/Interval History
-
Date of Service: December 10, 2023
Patient felt shaky this morning and received prn dose of IV Ativan. she is concerned about her doses of Phenobarb (told nurse that she thought her last night dose was missed, checked with nursing, dose was noted that was given, nurse will review
with pt)
Objective Data
-
Labs:
Laboratory Results
12/10/23
08:06
Sodium 135
Potassium 3.9
Chloride 103
Carbon Dioxide 24
BUN 5 L
Creatinine 0.4 L
Glucose 98
Calcium 9.2
Vital Signs:
Vital Signs
Temp Pulse Resp BP Pulse Ox
97.8 F 120 20 144/109 98
12/10/23 07:00 12/10/23 07:00 12/10/23 07:00 12/10/23 07:00 12/10/23 07:00
I&O
12/09/23 12/10/23 12/11/23
06:59 06:59 06:59
Intake Total 1440 / 1440 1680 / 1680
Balance 1440 / 1440 1680 / 1680
Review of Systems
-
History Source: Patient and Coordinated Provider (LILIANA Parsons in room with me during entire visit)
Constitutional: Denies Fever
EENT: Reports No Symptoms Reported
Respiratory: Reports No Symptoms
Cardiac: Reports No Symptoms
Abdomen/GI: Reports No Symptoms
Neuro: Reports Other (felt shaky this morning)
Physical Exam
-
General: Well Developed, Well Nourished and No Apparent Distress
HEENT: Normocephalic, Atraumatic and Moist Mucous Membranes
Respiratory: Clear to Auscultation; Negative Wheezes, Rales or Rhonchi
GI: Soft, Nontender and Nondistended
Neuro: Awake, Alert, Oriented, No Motor Deficits and Nonfocal/Grossly Intact; Negative Tremors or Sedated
[2023-12-10] MEDS: RISPERDAL M-TAB (ORALLY DISINTEGRATING) 0.5 MG PO (12:14)
[2023-12-10] MEDS: PHENOBARBITAL 97.5 MG IV ×2 (14:34→20:53)
[2023-12-10 15:00] VITALS: BP 99/68
--- NOTE | 2023-12-10 18:05 | W.PN.UPDATE ---
Update Note
Progress Note Update
Pt seen & evaluated at bedside, boyfriend present as well, chart reviewed. Patient laying in bed curcled up under covers, reports GI distress, aches and overall feeling unwell. No acute withdrawal symptoms noted however - phenobarb taper was slowed
today due to concerns of w/d resurfacing and pt with hx of w/d seizures. Discussed with pt that phenobarb can help manage etoh w/d so as to avoid physical risks, however she still will likely feel unwell still and this is unfortunately part of the
process. Pt did recently have some sober time and was tearfull about 'losing those days' but was open to encouragement, both from myself and bf.
Fully oriented, no significant tremors noted,VS fairly stable
would maintain 3 total doses of phenobarbital 64.8mg, then resume taper
ordered prn trazodone as pt says having difficulty sleeping
--- NOTE | 2023-12-10 18:21 | PTCARENOTE ---
pt continues with MSAS due to alcohol abuse, her score has been in the 5 most of the shift, pt tearful stating that her symptoms are not well managed, Ativan given per protocol, boyfriend at bedside.
[2023-12-10] MEDS: MELATONIN 10 MG PO (20:53)
[2023-12-10] MEDS: VITAMIN B1 100 MG PO (20:53)
[2023-12-10] MEDS: ZOFRAN 4 MG IV (21:01)
[2023-12-10] MEDS: DESYREL 50 MG PO (21:47)
[2023-12-10 22:40] VITALS: BP 105/71
[2023-12-11] MEDS: ATIVAN 1 MG PO ×4 (01:41→23:44)
[2023-12-11] MEDS: D5/0.9% SODIUM CHLORIDE 1000 IV (05:05)
[2023-12-11 07:00] VITALS: BP 123/88
[2023-12-11 07:46] LABS: % Basophils 0.7 % (0-2); % Eosinophils 3.4 % (0-6); % Immature Granulocytes 0.4 % (0-0.5); % Lymphocytes 33.2 % (20.5-51.1); % Monocytes 6.5 % (1.7-9.3); % Neutrophils 55.8 % (42.2-75.2); Absolute Basophils 0.1 10^3/uL (0-0.2); Absolute Eosinophils 0.4 10^3/uL (0-0.7); Absolute Lymphocytes 3.5 10^3/uL (1.2-3.4); Absolute Monocytes 0.7 10^3/uL (0.1-0.6); Absolute Neutrophils 5.8 10^3/uL (1.4-6.5); Hemoglobin 11.9 g/dL (12.0-16.0); Mean Corpuscular Hgb 30.3 pg (27.0-31.0); Mean Corpuscular Volume 86.5 fL (81.0-99.0); Mean Platelet Volume 9.5 fL (7.4-10.4); Nucleated Red Blood Cells % 0 %; Platelet Count 297 10^3/uL (130-400); Red Blood Cell Count 3.93 10^6/uL (4.20-5.40); White Blood Cell Count 10.4 10^3/uL (4.8-10.8)
--- NOTE | 2023-12-11 07:50 | W.PN.HOSP.TC ---
Addendum entered and electronically signed by Franky Doyle MD 12/11/23 15:22:
Will check UA to confirm none of symptoms related to nondiagnosed UTI (doubt)
Addendum entered and electronically signed by Franky Doyle MD 12/11/23 09:15:
labs reviewed
Will allow pt to shower, order placed and nurse notified
Original Note:
Today's Communication/Plan
-
resume tapering dose of Phenobarb at 16:00
dc IVF
celestino review labs when available
Assessment / Plan
Assessment / Plan
Severe alcohol withdrawal/DTs:
-Alcohol level of 390 on admission
-cont Phenobarbital protocol
resumed dose of 97.5 mg q8h yesterday (12/09) at 14:[address] Preciado, she is to receive 3 additional doses total of the 97.5 mg prior to resuming the taper and is scheduled to resume the 64.8 mg tid at 16:00 today, assuming
continues to do well
-cont MSAS (thiamine/folate/PRN Ativan)
-Thiamine and folate
-stop IVF
-Continue B-12, Thiamine, Folic Acid,Neurontin 300 mg tid
Prazosin had been stopped
-Patient interested in rehab and seen by B denise
-Holding bupropion given history of alcohol withdrawal seizures
Anion gap metabolic acidosis resolved:
-likely secondary to alcoholic ketoacidosis
-beta-hydroxybutyrate normal
-Given a dose of bicarbonate
CO2 17-->14-->19-->23-->24
Other problems:
Chest pain: likely due to alcohol gastritis/GERD, Troponin NEG, will start short course of Protonix
h/o diarrhea predominant IBS
h/o alcohol withdrawal seizures: Holding bupropion
History of arrhythmia
Anxiety/depression/PTSD: Holding bupropion given history of heavy alcohol drinking and potential to lower seizure threshold. Psychiatry consulted.
Vaping history
Obesity due to excess calories
FULL/heparin
Anticipated Discharge: 24 - 48 hours
Subjective/Interval History
-
Date of Service: December 11, 2023
Feels much better this morning
Objective Data
-
Labs:
Laboratory Results
12/11/23
07:11
WBC Pending
Hgb Pending
Hct Pending
Plt Count Pending
Sodium Pending
Potassium Pending
Chloride Pending
Carbon Dioxide Pending
BUN Pending
Creatinine Pending
Glucose Pending
Calcium Pending
Total Bilirubin Pending
AST Pending
ALT Pending
Alkaline Phosphatase Pending
Vital Signs:
Vital Signs
Temp Pulse Resp BP Pulse Ox
97.8 F 97 17 105/71 99
12/10/23 22:40 12/10/23 22:40 12/10/23 22:40 12/10/23 22:40 12/11/23 02:32
I&O
12/10/23 12/11/23 12/12/23
06:59 06:59 06:59
Intake Total 1680 / 1680 2400 / 2400
Balance 1680 / 1680 2400 / 2400
Review of Systems
-
History Source: Patient and Coordinated Provider (LILIANA Parsons in room with me during entire visit)
Constitutional: Denies Fever
EENT: Reports No Symptoms Reported
Respiratory: Reports No Symptoms
Cardiac: Reports No Symptoms
Abdomen/GI: Reports No Symptoms
Neuro: Reports Other (no longer felt shaky today)
Physical Exam
-
General: Well Developed, Well Nourished and No Apparent Distress
HEENT: Normocephalic, Atraumatic and Moist Mucous Membranes
Respiratory: Clear to Auscultation; Negative Wheezes, Rales or Rhonchi
GI: Soft, Nontender and Nondistended
Neuro: Awake, Alert, Oriented, No Motor Deficits and Nonfocal/Grossly Intact; Negative Tremors or Sedated
[2023-12-11] MEDS: NEURONTIN 300 MG PO ×3 (08:19→21:40)
[2023-12-11] MEDS: FOLVITE 1 MG PO (08:19)
[2023-12-11] MEDS: VITAMIN B1 100 MG PO ×2 (08:19→19:59)
[2023-12-11] MEDS: VITAMIN B-12 1000 MCG PO (08:20)
[2023-12-11] MEDS: PHENOBARBITAL 97.5 MG IV (08:20)
[2023-12-11] MEDS: HEPARIN 5000 UNITS SC ×2 (08:20→19:59)
[2023-12-11 08:35] LABS: ALT (SGPT) 16 U/L (0-35); AST (SGOT) 22 U/L (14-36); Albumin 3.7 g/dl (3.5-5.0); Alkaline Phosphatase 57 U/L (38-126); Blood Urea Nitrogen 4 mg/dl (7-17); Calcium 8.6 mg/dl (8.4-10.2); Carbon Dioxide 21 mmol/L (22-30); Chloride 106 mmol/L (98-107); Direct Bilirubin 0.1 mg/dl (0.0-0.4); Estimated Creatinine Clearance > 125 ml/min; Glucose 105 mg/dl (70-99); Sodium 133 mmol/L (135-145); Total Bilirubin 0.5 mg/dl (0.2-1.3); Total Protein 6.2 g/dl (6.3-8.2); eGFR > 60.00
--- NOTE | 2023-12-11 08:51 | VATNOTE ---
During routine assessment, infiltrate to L hand appeared resolved. Pt without complaint of discomfort.
[2023-12-11] MEDS: PROTONIX 40 MG PO (11:03)
[2023-12-11] MEDS: ZOFRAN 4 MG IV ×2 (11:03→19:59)
[2023-12-11 15:00] VITALS: BP 139/97
[2023-12-11] MEDS: LUMINAL 64.7999999999999972 MG PO ×2 (16:18→21:40)
[2023-12-11 16:39] LABS: Urine Albumin Negative (Neg - Trace); Urine Bilirubin Negative (Negative); Urine Character Clear (Clear); Urine Color Yellow; Urine Glucose Negative (Negative); Urine Ketone Negative (Negative); Urine Leukocyte 2+ (Negative); Urine Nitrite Negative (Negative); Urine Occult Blood Negative (Negative); Urine Urobilinogen Negative (Neg - 1+)
[2023-12-11 16:54] LABS: Urine Bacteria Few (Negative); Urine Red Blood Cell 0-2 /HPF (0-2); Urine Squamous Cell >30 /LPF (Few); Urine White Cell >100 /HPF (0-5)
[2023-12-11] MEDS: DESYREL 50 MG PO (21:39)
[2023-12-11 23:14] VITALS: BP 110/71
[2023-12-12 07:45] VITALS: BP 130/87
[2023-12-12] MEDS: FOLVITE 1 MG PO (08:35)
[2023-12-12] MEDS: NEURONTIN 300 MG PO ×3 (08:35→22:28)
[2023-12-12] MEDS: PROTONIX 40 MG PO (08:35)
[2023-12-12] MEDS: VITAMIN B1 100 MG PO ×2 (08:35→20:53)
[2023-12-12] MEDS: VITAMIN B-12 1000 MCG PO (08:40)
[2023-12-12] MEDS: HEPARIN 5000 UNITS SC ×2 (08:40→20:52)
[2023-12-12] MEDS: LUMINAL 64.7999999999999972 MG PO ×2 (08:41→16:01)
[2023-12-12 08:44] LABS: Magnesium 1.4 mg/dl (1.6-2.3)
[2023-12-12] MEDS: ZOFRAN 4 MG IV ×3 (09:40→22:29)
--- NOTE | 2023-12-12 11:00 | W.PN.HOSP.TC ---
Today's Communication/Plan
-
Case management to get in touch with [facility] and also with patient for discharge plans. Patient wants to do [facility] outpatient and not inpatient.
I have also reached out to psychiatry to see if they agree with current taper dose and also what psychiatric medicines she will be discharged on. She has been off of Wellbutrin and prazosin here.
Assessment / Plan
Assessment / Plan
23-year-old female with alcohol use. No symptoms noted by me this morning patient conversant. Says she feels great.
Awake alert oriented
No tremors
Cardiovascular system S1-S2 appreciated
Chest clear to auscultation
Abdomen soft and nontender
No pedal edema
#Severe alcohol withdrawal/DTs:
-Alcohol level of 390 on admission
-Cont Phenobarbital protocol
-MSAS 2 today, she feels well.
-Phenobarbital taper cut short to end tomorrow.
-Thiamine and folate to be continued
-Continue B-12, Thiamine, Folic Acid,Neurontin 300 mg tid
-Prazosin had been stopped
-Patient does not want to do inpatient rehab. She states that she is set up at [facility] and has a supportive boyfriend at home. He does not drink
-Holding bupropion given history of alcohol withdrawal seizures
#Anion gap metabolic acidosis resolved
-Likely secondary to alcoholic ketoacidosis
-beta-hydroxybutyrate normal
#Chest pain: likely due to alcohol gastritis/GERD, Troponin NEG, will start short course of Protonix
#h/o diarrhea predominant IBS
#h/o alcohol withdrawal seizures: Holding bupropion
#History of arrhythmia
#Anxiety/depression/PTSD: Holding bupropion given history of heavy alcohol drinking and potential to lower seizure threshold. Psychiatry consulted.
#Vaping history
#Obesity due to excess calories
#FULL CODE
#DVT Prophylaxis- SC heparin
Reached out to Psyche
Anticipated Discharge: Within 24 hours
Subjective/Interval History
-
Date of Service: December 12, 2023
Objective Data
-
Vital Signs:
Vital Signs
Temp Pulse Resp BP Pulse Ox
97.8 F 93 17 130/87 96
12/12/23 07:45 12/12/23 07:45 12/12/23 07:45 12/12/23 07:45 12/12/23 07:45
I&O
12/11/23 12/12/23 12/13/23
06:59 06:59 06:59
Intake Total 2400 / 2400 1520 / 1520
Output Total 100 / 100
Balance 2400 / 2400 1420 / 1420
[2023-12-12] MEDS: MAGNESIUM SULFATE 50 IV (12:06)
--- NOTE | 2023-12-12 12:40 | CM ---
NADIYA reached out to [facility] and spoke with Jlaen case packer. Jalen will be up to see the patient at bedside today to discuss options for treatment. Per note, patient interested in outpatient treatment at [facility] [place]. CM continues to be
available to patient/family and is monitoring medical plan for needs at discharge.
Plan: Discharge to home on outpatient therapy.
[2023-12-12 15:45] VITALS: BP 130/95
[2023-12-12] MEDS: ATIVAN 1 MG PO ×2 (18:42→21:04)
--- NOTE | 2023-12-12 19:43 | PTCARENOTE ---
Pt. having tremors and nausea. Pt. vomited once in bathroom. MSAS 7. PO Ativan given per order. MSAS back to q2 hours. Pt states feels better after PO ativan. Will relay to nightshift RN.
[2023-12-12 22:24] VITALS: BP 126/90
[2023-12-12] MEDS: LUMINAL 32.3999999999999986 MG PO (22:27)
[2023-12-12] MEDS: MINIPRESS 1 MG PO (22:27)
[2023-12-12] MEDS: MELATONIN 10 MG PO (22:28)
[2023-12-13 06:00] LABS: Blood Urea Nitrogen 8 mg/dl (7-17); Calcium 8.7 mg/dl (8.4-10.2); Carbon Dioxide 23 mmol/L (22-30); Chloride 107 mmol/L (98-107); Estimated Creatinine Clearance > 125 ml/min; Glucose 96 mg/dl (70-99); Magnesium 1.8 mg/dl (1.6-2.3); Sodium 133 mmol/L (135-145); eGFR > 60.00
[2023-12-13] MEDS: ZOFRAN 4 MG IV (06:28)
[2023-12-13 07:46] VITALS: BP 131/81
[2023-12-13] MEDS: NEURONTIN 300 MG PO (08:54)
[2023-12-13] MEDS: FOLVITE 1 MG PO (08:54)
[2023-12-13] MEDS: VITAMIN B1 100 MG PO (08:54)
[2023-12-13] MEDS: VITAMIN B-12 1000 MCG PO (08:54)
[2023-12-13] MEDS: LUMINAL 32.3999999999999986 MG PO ×2 (08:55→16:11)
[2023-12-13] MEDS: PROTONIX 40 MG PO (08:55)
[2023-12-13] MEDS: HEPARIN 5000 UNITS SC (08:55)
[2023-12-13] MEDS: MAGNESIUM OXIDE 500 MG PO (08:55)
--- NOTE | 2023-12-13 10:44 | W.PN.HOSP.TC ---
Today's Communication/Plan
-
Stop Ativan
Complete phenobarbital
If patient is doing well will discharge around dinnertime today.
Assessment / Plan
Assessment / Plan
23-year-old female with alcohol use. No symptoms noted by me this morning patient conversant. Says she feels great.
Awake alert oriented
No tremors
Cardiovascular system S1-S2 appreciated
Chest clear to auscultation
Abdomen soft and nontender
No pedal edema
She vomited once yesterday after she ate pizza but other than that has been feeling well. MSAS was high secondary to nausea diaphoresis and vomiting. She feels well today and wants to go home. She has an appointment scheduled with a therapist
tomorrow at 4 PM.
#Severe alcohol withdrawal/DTs:
-Alcohol level of 390 on admission
-Cont Phenobarbital protocol
-MSAS lower today, she feels well.
-Phenobarbital taper to end today
-Thiamine and folate to be continued
-Continue B-12, Thiamine, Folic Acid,Neurontin 300 mg tid
-Prazosin restarted. Okay to restart Wellbutrin at discharge per discussion with psychiatrist yesterday.
-Patient does not want to do inpatient rehab. She states that she is set up at [facility] [place] and has a supportive boyfriend at home. He does not drink
-Holding bupropion given history of alcohol withdrawal seizures
#Anion gap metabolic acidosis resolved
-Likely secondary to alcoholic ketoacidosis
-beta-hydroxybutyrate normal
#Chest pain: likely due to alcohol gastritis/GERD, Troponin NEG, continue Protonix for 2 weeks then stop.
#h/o diarrhea predominant IBS
#h/o alcohol withdrawal seizures:
#History of arrhythmia
#Anxiety/depression/PTSD: Restart Wellbutrin at discharge per discussion with psychiatry
#Vaping history
#Obesity due to excess calories
#FULL CODE
#DVT Prophylaxis- SC heparin
Discussed with psychiatry yesterday
Discussed with nursing today
Anticipated Discharge: Today
Subjective/Interval History
-
Date of Service: December 13, 2023
Objective Data
-
Labs:
Laboratory Results
12/13/23
04:28
Sodium 133 L
Potassium 4.0
Chloride 107
Carbon Dioxide 23
BUN 8
Creatinine 0.4 L
Glucose 96
Calcium 8.7
Vital Signs:
Vital Signs
Temp Pulse Resp BP Pulse Ox
98.4 F 74 14 131/81 99
12/13/23 07:46 12/13/23 07:46 12/13/23 07:46 12/13/23 07:46 12/13/23 07:46
I&O
12/12/23 12/13/23 12/14/23
06:59 06:59 06:59
Intake Total 1520 / 1520 1919
Output Total 100 / 100
Balance 1420 / 1420 1919
--- NOTE | 2023-12-13 10:57 | W.PN.UPDATE ---
Update Note
Progress Note Update
Late Entry: Pt seen yesterday afternoon, 12/12/23.
Pt seen, resting in bed, alert, calm, cooperative, in no apparent distress. Pt being treated for alcohol withdrawal, scheduled to finish Phenobarb taper 12/12. Pt on MSAS, last received Ativan 12/10. Pt states she asked for Ativan 'a couple
times', concerned she was seen as med-seeking. Pt reportedly in alcohol rehab 3 months ago, states she had a '4-day binge', want to return and do outpatient treatment, has follow-up including a psychiatrist at [facility]. Reviewed outpatient
meds; pt states she misses Prazosin, states Trazodone ordered here is not helping.
Imp: Alcohol Use d/o, severe
Unspecified Depression, PTSD by history
Rec: complete Phenobarb taper 12/12. Will resume Prazosin 1 mg HS. Would continue current dose of Gabapentin (tapered here on admission).
Would hold off Wellbutrin and hold off higher reported outpatient doses of psych meds until pt returns home to outpatient follow-up
--- NOTE | 2023-12-13 12:23 | CM ---
Reviewed the chart notes. The patient is expected to discharge and follow-up with [facility] for outpatient rehab and her psychiatrist. No other needs identified at this time. CM continues to be available to patient/family and is monitoring
medical plan for needs at discharge.
Plan: Discharge to home when medically stable.
[2023-12-13] MEDS: ZOFRAN 4 MG PO (13:29)
[2023-12-13 15:47] VITALS: BP 147/91
[2023-12-13] MEDS: NEURONTIN 600 MG PO (16:11)
[2023-12-13] MEDS: REVIA 50 MG PO (16:11)
--- NOTE | 2023-12-13 16:11 | W.PN.UPDATE ---
Update Note
Progress Note Update
Pt seen, sitting up in bed, alert and oriented, calm and cooperative, on her laptop, in no apparent distress. Mood and affect appear stable and appropriate. Pt states she is starting to miss her outpatient psych medication regimen. No agitation,
no signs of acute alcohol withdrawal. Pt asked about how she could have significant withdrawal after a short period of alcohol use. Pt plans to return to her outpatient treatment, including psychiatrist, at [facility].
Imp: Alcohol Use d/o, severe. Pt declines residential alcohol rehab
�� � � Unspecified Depression, PTSD by history, appears stable
Rec:� pt to complete Phenobarb taper this afternoon.� Would continue current dose of Gabapentin (tapered here on admission).
� � � Would hold off Wellbutrin and hold off higher reported outpatient doses of psych meds. Pt can resume previous regimen upon return home- states she has supply
Pt appears stable to return home with outpatient follow-up
--- NOTE | 2023-12-13 16:17 | W.PN.UPDATE ---
Update Note
Progress Note Update
Feels well. Wants to go home.
Note for work given.
Discussed with Psyche .
OK to resume meds except Wellbutrin
Discharge time 32 min
--- NOTE | 2023-12-13 16:18 | W.DS.TRANS ---
Addendum entered and electronically signed by Marcio Snyder MD 12/13/23 16:58:
Dictation- [id number]
Original Note:
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
-
Discharge Instructions:
Discharge Diagnosis/Procedures Alcohol withdrawal, alcohol abuse, metabolic
acidosis, IBS, anxiety and depression
Diet As tolerated
Activity As tolerated
Driving Restrictions Do not drive when you use alcohol
Instructions:
Stand-Alone Forms:
Changes to Home Medications: Yes
Discharge Medications:
DC Medications w/original date entered in [employer]
folic acid 1 mg tablet 1 mg PO DAILY Supplement 09/03/23
cyanocobalamin (vitamin B-12) 1,000 mcg tablet 1,000 mcg PO DAILY Supplement 09/19/23
naltrexone 50 mg tablet 50 mg PO HS Alcohol Use Disorder 09/19/23
gabapentin 600 mg tablet 600 mg PO TID Pain 12/07/23
melatonin 10 mg tablet 10 mg PO HS PRN sleep 12/07/23
prazosin 1 mg capsule 1 mg PO HS Alpha 1 Laurence; Antihypertensive 12/07/23
magnesium oxide 500 mg PO DAILY Supplement #0 tabs 12/13/23
pantoprazole 40 mg tablet,delayed release 40 mg PO DAILY Gastrointestinal issue #15 tabs 12/13/23
thiamine HCl (vitamin B1) 100 mg tablet 100 mg PO BID Supplement #60 tabs 12/13/23
Home Medication Changes
new
magnesium oxide 500 mg PO DAILY Supplement #0 tabs 12/13/23
pantoprazole 40 mg tablet,delayed release 40 mg PO DAILY Gastrointestinal issue #15 tabs 12/13/23
thiamine HCl (vitamin B1) 100 mg tablet 100 mg PO BID Supplement #60 tabs 12/13/23
Pending Results: No
--- NOTE | 2023-12-13 17:46 | W.DS.TRANS ---
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
-
Discharge Instructions:
Discharge Diagnosis/Procedures Alcohol withdrawal, alcohol abuse, metabolic
acidosis, IBS, anxiety and depression
Diet As tolerated
Activity As tolerated
Driving Restrictions Do not drive when you use alcohol
Instructions:
Stand-Alone Forms:
Changes to Home Medications: Yes
Discharge Medications:
DC Medications w/original date entered in [employer]
folic acid 1 mg tablet 1 mg PO DAILY Supplement 09/03/23
cyanocobalamin (vitamin B-12) 1,000 mcg tablet 1,000 mcg PO DAILY Supplement 09/19/23
naltrexone 50 mg tablet 50 mg PO HS Alcohol Use Disorder 09/19/23
gabapentin 600 mg tablet 600 mg PO TID Pain 12/07/23
melatonin 10 mg tablet 10 mg PO HS PRN sleep 12/07/23
prazosin 1 mg capsule 1 mg PO HS Alpha 1 Laurence; Antihypertensive 12/07/23
magnesium oxide 500 mg PO DAILY Supplement #0 tabs 12/13/23
ondansetron HCl 4 mg tablet 4 mg PO DAILY PRN nausea 5 days #5 tabs 12/13/23
pantoprazole 40 mg tablet,delayed release 40 mg PO DAILY Gastrointestinal issue #15 tabs 12/13/23
thiamine HCl (vitamin B1) 100 mg tablet 100 mg PO BID Supplement #60 tabs 12/13/23
Home Medication Changes
new
magnesium oxide 500 mg PO DAILY Supplement #0 tabs 12/13/23
ondansetron HCl 4 mg tablet 4 mg PO DAILY PRN nausea 5 days #5 tabs 12/13/23
pantoprazole 40 mg tablet,delayed release 40 mg PO DAILY Gastrointestinal issue #15 tabs 12/13/23
thiamine HCl (vitamin B1) 100 mg tablet 100 mg PO BID Supplement #60 tabs 12/13/23
Pending Results: No
--- NOTE | 2023-12-13 17:54 | PTCARENOTE ---
Pt. discharged home. Paperwork went over with pt and pts significant other at the bedside. IV taken out.
== END 2023-12-13 17:56 | disposition home or self-care (01) | DRG 897 ==
LOC: 2 NORTH 20:22
PROVIDERS: Internal Medicine; Physician Assistant; ADMITTING PHYSICIAN Hospitalist; ATTENDING PHYSICIAN Hospitalist; EMERGENCY PHYSICIAN Emergency Medicine; OTHER PHYSICIAN Psychiatry & Neurology Psychiatry
DX: F10.139 Alcohol abuse with withdrawal, unspecified (principal); E87.29 Other acidosis; F32.A Depression, unspecified; F43.10 Post-traumatic stress disorder, unspecified; K58.0 Irritable bowel syndrome with diarrhea; Y90.8 Blood alcohol level of 240 mg/100 ml or more; K21.9 Gastro-esophageal reflux disease without esophagitis; K29.20 Alcoholic gastritis without bleeding; F34.1 Dysthymic disorder; R25.1 Tremor, unspecified; R44.1 Visual hallucinations; E66.09 Other obesity due to excess calories; Z68.32 Body mass index [BMI] 32.0-32.9, adult
CPT/HCPCS: 80048; 80053; 81003; 81015; 82010; 82077; 82248; 83735; 84100; 84484; 85025; 87086; 93005; 96361; 96374; 96375; 99285

== ENCOUNTER 2023-12-19 20:42 | Emergency (ER) | payer OTHER, SELFPAY ==
[2023-12-19 20:45] VITALS: BP 151/98
[2023-12-19 21:04] LABS: % Basophils 1.4 % (0-2); % Eosinophils 0.2 % (0-6); % Immature Granulocytes 0.4 % (0-0.5); % Lymphocytes 56.3 % (20.5-51.1); % Monocytes 4.6 % (1.7-9.3); % Neutrophils 37.1 % (42.2-75.2); Absolute Basophils 0.1 10^3/uL (0-0.2); Absolute Lymphocytes 5.7 10^3/uL (1.2-3.4); Absolute Monocytes 0.5 10^3/uL (0.1-0.6); Absolute Neutrophils 3.8 10^3/uL (1.4-6.5); Hematocrit 40.9 % (37.0-47.0); Hemoglobin 14.7 g/dL (12.0-16.0); Mean Corp Hgb Conc. 35.9 g/dL (33.0-37.0); Mean Corpuscular Hgb 30.9 pg (27.0-31.0); Mean Corpuscular Volume 85.9 fL (81.0-99.0); Mean Platelet Volume 8.3 fL (7.4-10.4); Nucleated Red Blood Cells % 0 %; Platelet Count 500 10^3/uL (130-400); Red Blood Cell Count 4.76 10^6/uL (4.20-5.40); Red Cell Dist. Width 13.1 % (11.5-14.5); White Blood Cell Count 10.1 10^3/uL (4.8-10.8)
[2023-12-19 21:30] LABS: HCG, Serum Qualitative Screen Negative
[2023-12-19 21:32] LABS: ALT (SGPT) 34 U/L (0-35); AST (SGOT) 44 U/L (14-36); Albumin 5.3 g/dl (3.5-5.0); Alkaline Phosphatase 72 U/L (38-126); Blood Urea Nitrogen 9 mg/dl (7-17); Calcium 9.4 mg/dl (8.4-10.2); Carbon Dioxide 22 mmol/L (22-30); Chloride 107 mmol/L (98-107); Glucose 94 mg/dl (70-99); Potassium 4.4 mmol/L (3.5-5.1); Sodium 143 mmol/L (135-145); Total Bilirubin 0.5 mg/dl (0.2-1.3); Total Protein 8.5 g/dl (6.3-8.2); eGFR > 60.00
[2023-12-20 01:25] VITALS: BP 99/82
--- NOTE | 2023-12-20 01:33 | ED.GENMED ---
History of Present Illness
<Franky Khan DO - Last Filed: 12/20/23 02:54>
General
Chief Complaint: Alcohol Problem
Source: patient and family
Exam Limitations: none
Time Seen by Provider: 12/20/23 00:59
Nursing documentation reviewed up to this point in time: agreed with
Travel History
Have you had any contact with someone who has COVID-19?: No
Do you have any symptoms of coronavirus? Fever > 100 degrees, chills, cough, shortness of breath, sore throat, loss of taste or smell, muscle aches, or headache?: No
History of Present Illness
History of Present Illness:
Patient is a 23-year-old female presents to the emergency department complaining of alcohol intoxication and abuse. Patient was in rehab in September and today was her day. Patient's last drink was about 5 hours ago. Patient denies any other
substances. Patient does vape. Patient has had nausea vomiting and feeling anxious and shaky as well as diaphoretic. Patient denies any abdominal pain, patient denies any recent illnesses or injuries. Patient has her period presently.
Past History
<Franky Khan DO - Last Filed: 12/20/23 02:54>
Past History
ED Past Medical History: Seizures, Psychiatric (Anxiety/depression) and Other (Alcohol abuse, alcohol withdrawal seizures, IBS, )
ED Past Surgical History: Orthopedic (Right knee)
Social History
Tobacco: Vaping
Alcohol: Daily (Wine 2-3 gallon bottles daily)
Drug: None
Personal: Single
Living: with family (Lives with significant other)
Employment: Not employed
Family History
Family History: Other (Both parents reportedly alcoholics)
Review of Systems
<Franky Khan DO - Last Filed: 12/20/23 02:54>
Review of Systems
All Other Systems: ROS reviewed and negative except as documented in HPI and ROS
Constitutional: Reports fatigue and chills; Denies fever
EENT: Reports no symptoms
Respiratory: Reports no symptoms
Cardiac: Reports diaphoresis and palpitations; Denies chest pain or syncope
ABD/GI: Reports nausea and vomiting; Denies abdominal pain, diarrhea, bloody stools or black stools
: Reports no symptoms
Musculoskeletal: Reports no symptoms
Skin: Reports no symptoms
Neurological: Reports no symptoms
Hematologic/Lymphatic: Reports no symptoms
Psychiatric: Reports anxiety; Denies suicidal
Phy Exam
<Franky Khan DO - Last Filed: 12/20/23 02:54>
Physical Exam
Physical Exam:
Physical Exam
General: mild distress, alert and appropriate, well nourished, well hydrated
HENT: Normocephalic, supple with no lymphadenopathy, no thyromegaly
Eyes: Clear sclera, conjuctiva without injection
Heart: Regular rhythm and rate. No S3, S4. No murmur.
Lungs: No respiratory distress, no stridor, lung sounds clear and equal bilaterally
Abdomen: Soft, nontender, no organomegaly, no CVA tenderness, BS good
Neuro: Alert and oriented x 3, CN II - XII intact, no motor focality, no cerebellar dysfunction
Skin: no rash
Psychiatric: well kept. interactive and cooperative
Extremities: No edema, cyanosis, tenderness, Good and equal peripheral pulses.
Scores
<Franky Khan DO - Last Filed: 12/20/23 02:54>
Withdrawal Assessment of Alcohol
Withdrawal Assessment Completed?: Yes
Nausea and Vomiting: Intermittent nausea with dry heaves
Tactile Disturbances: Very mild itching, pins and needles, burning or numbness
Tremor: Not visible, but can be felt fingertip to fingertip
Auditory Disturbances: Not present
Paroxysmal Sweats: Beads of sweat obvious on forehead
Visual Disturbances: Not present
Anxiety: Moderately anxious, or guarded, so anxiety is inferred
Headache, Fullness in Head: Not present
Agitation: Normal activity
Orientation and clouding of sensorium: Oriented and can do serial additions
Total CIWA Score: 14
Alcohol Withdrawal Medication Recommendation: Equal to MSAS Score 5-7. Lorazepam 1mg IV or PO NOW & re-assess q2hrs
<Carlene Faustin, DO - Last Filed: 12/20/23 06:33>
Withdrawal Assessment of Alcohol
Total CIWA Score: 14
Alcohol Withdrawal Medication Recommendation: Equal to MSAS Score 5-7. Lorazepam 1mg IV or PO NOW & re-assess q2hrs
Course
<Franky Khan, DO - Last Filed: 12/20/23 02:54>
Orders/Labs/Results
Orders:
Orders
12/19/23 20:51
Test Result ONCE
12/19/23 20:57
Alcohol Urgent
CMP [Comprehensive Metabolic Panel] Urgent
Complete Blood Count/With Diff Urgent
, Serum Qualitative Screen [HCG, Serum Qualitative Screen] Urgent
12/19/23 23:45
Urine Drug Abuse Screen Urgent
Date Specimen was Collected: 12/19/23
Time Specimen was Collected: 20:51
12/20/23 01:00
Add On- LAB Urgent
Tests Added?: serum alcohol
12/20/23 01:36
0.9% Sodium Chloride 1000 ml [Nss] 1,000 ml IV BOLUS
Lorazepam [Ativan] 1 mg IV NOW STA
Ondansetron Injectable [Zofran] 4 mg IV NOW STA
Thiamine Injection 100 mg IV NOW STA
12/20/23 02:28
Lorazepam [Ativan] 1 mg IV NOW STA
12/20/23 05:43
Lorazepam [Ativan] 1 mg IV NOW STA
Abnormal Lab Results
12/19/23 12/20/23
20:57 01:29
Plt Count 500 H 10^3/uL
(130-400)
Absolute Lymphs (auto) 5.7 H 10^3/uL
(1.2-3.4)
Neutrophils % 37.1 L %
(42.2-75.2)
Lymphocytes % 56.3 H %
(20.5-51.1)
AST 44 H U/L
(14-36)
Total Protein 8.5 H g/dl
(6.3-8.2)
Albumin 5.3 H g/dl
(3.5-5.0)
Ur Barbiturates Screen Positive H
(Negative)
Alcohol, Quantitative 401 H* mg/dl
12/19/23 20:57
12/19/23 20:57
Vital Signs
Initial and Last Documented VS:
Initial Vital Signs
Temp Pulse Resp BP Pulse Ox
98 F 90 24 151/98 97
12/19/23 20:45 12/19/23 20:45 12/19/23 20:45 12/19/23 20:45 12/19/23 20:45
Last Documented Vital Signs
Temp Pulse Resp BP Pulse Ox
98 F 107 12 99/81 97
12/19/23 20:45 12/20/23 05:49 12/20/23 05:49 12/20/23 03:00 12/20/23 02:45
<Carlene Faustin, DO - Last Filed: 12/20/23 06:33>
Orders/Labs/Results
Orders:
Orders
12/19/23 20:51
Test Result ONCE
12/19/23 20:57
Alcohol Urgent
CMP [Comprehensive Metabolic Panel] Urgent
Complete Blood Count/With Diff Urgent
, Serum Qualitative Screen [HCG, Serum Qualitative Screen] Urgent
12/19/23 23:45
Urine Drug Abuse Screen Urgent
Date Specimen was Collected: 12/19/23
Time Specimen was Collected: 20:51
12/20/23 01:00
Add On- LAB Urgent
Tests Added?: serum alcohol
12/20/23 01:36
0.9% Sodium Chloride 1000 ml [Nss] 1,000 ml IV BOLUS
Lorazepam [Ativan] 1 mg IV NOW STA
Ondansetron Injectable [Zofran] 4 mg IV NOW STA
Thiamine Injection 100 mg IV NOW STA
12/20/23 02:28
Lorazepam [Ativan] 1 mg IV NOW STA
12/20/23 05:43
Lorazepam [Ativan] 1 mg IV NOW STA
Abnormal Lab Results
12/19/23 12/20/23
20:57 01:29
Plt Count 500 H 10^3/uL
(130-400)
Absolute Lymphs (auto) 5.7 H 10^3/uL
(1.2-3.4)
Neutrophils % 37.1 L %
(42.2-75.2)
Lymphocytes % 56.3 H %
(20.5-51.1)
AST 44 H U/L
(14-36)
Total Protein 8.5 H g/dl
(6.3-8.2)
Albumin 5.3 H g/dl
(3.5-5.0)
Ur Barbiturates Screen Positive H
(Negative)
Alcohol, Quantitative 401 H* mg/dl
12/19/23 20:57
12/19/23 20:57
Vital Signs
Initial and Last Documented VS:
Initial Vital Signs
Temp Pulse Resp BP Pulse Ox
98 F 90 24 151/98 97
12/19/23 20:45 12/19/23 20:45 12/19/23 20:45 12/19/23 20:45 12/19/23 20:45
Last Documented Vital Signs
Temp Pulse Resp BP Pulse Ox
98 F 107 12 99/81 97
12/19/23 20:45 12/20/23 05:49 12/20/23 05:49 12/20/23 03:00 12/20/23 02:45
<Franky Khan DO - Last Filed: 12/20/23 02:54>
*Pulse Oximetry
Patient hypoxic: no
*EKG
Interpreted by ED Provider?: NA
*Critical Care Note
Total Time (30-74mins, 75-104mins- exclusive of procedures): Not Applicable
<Franky Khan DO - Last Filed: 12/20/23 02:54>
Update Note
Update Note:
Will have [facility] see the patient
<Carlene Faustin, DO - Last Filed: 12/20/23 06:33>
Update Note
Update Note:
Will have [facility] see the patient
12/20/2023 0600 AM
Freddy walker has evaluated patient. Had been working on inpatient rehabilitation acceptance but patient refuses any inpatient rehab save for [facility].
Unfortunately, there is a waiting list for [facility]. Freddy walker has offered other inpatient facilities which patient adamantly declines.
She fears that she will go through withdrawal and continue drinking however at this point no indication for acute hospitalization.
She does however need inpatient detox treatment which she also declined during recent hospitalization here last week.
Recommend prompt follow-up with counselor at [facility]�recommend she follow-up with her counselor today.
I have offered a short course of oral Ativan but patient elected to go home with her significant other prior to discharge paperwork and prescription.
ED Attending Note
<Franky Khan DO - Last Filed: 12/20/23 02:54>
-
Portions of this chart may have been created with voice recognition software.� Occasional wrong word or��sound alike� substitutions may have occurred due to the inherent limitations of voice recognition software.
Discharge Plan
Departure
Patient Disposition: Home (Routine Discharge)
Date of Disposition: 12/20/23
Time of Disposition: 06:00
Patient with high blood pressure during this ER visit?: Yes
Condition: Fair
Covid-19: Not Applicable
Discharge Problem:
Alcohol use disorder, Chronic alcohol abuse
Instructions: Alcohol Use Disorder (DC)
Prescriptions:
No Action
folic acid 1 mg tablet
1 mg PO DAILY
naltrexone 50 mg Tablet
50 mg PO HS
cyanocobalamin (vitamin B-12) 1,000 mcg Tablet
1,000 mcg PO DAILY
gabapentin 600 mg tablet
600 mg PO TID
prazosin 1 mg capsule
1 mg PO HS
melatonin 10 mg tablet
10 mg PO HS PRN (Reason: sleep)
thiamine HCl (vitamin B1) 100 mg Tablet
100 mg PO BID Qty: 60 0RF
pantoprazole 40 mg Tablet,Delayed Release (Dr/Ec)
40 mg PO DAILY Qty: 15 0RF
magnesium oxide 500 mg magnesium Tablet
500 mg PO DAILY Qty: 0 0RF
ondansetron HCl 4 mg tablet
4 mg PO DAILY PRN (Reason: nausea) 5 Days Qty: 5 0RF
Referrals:
PRIVATE,PHYSICIAN [Family Provider] -
Interventions
Interventions:
*Risk Screen - Suicide Last Done: 12/19/23 20:45
*General Assessment Last Done: 12/19/23 20:45
*Neglect/Abuse Screening Last Done: 12/19/23 20:45
ED- Fall Risk Assessment Last Done: 12/20/23 01:10
ED- Neurological Assessment Last Done: 12/20/23 01:10
ED-Psychological Assessment Last Done: 12/20/23 01:10
Discharge Date and Time
Print Language: MACEDONIAN
[2023-12-20] MEDS: ATIVAN 1 MG IV ×3 (01:39→05:45)
[2023-12-20] MEDS: THIAMINE INJECTION 100 MG IV (01:44)
[2023-12-20] MEDS: NSS 1000 IV (01:45)
[2023-12-20] MEDS: ZOFRAN 4 MG IV (01:45)
[2023-12-20 02:00] VITALS: BP 84/61
[2023-12-20 02:00] LABS: Amphetamines Negative (Negative); Barbiturates Positive (Negative); Benzodiazepines Negative (Negative); Buprenorphine Negative (Negative); Cocaine Negative (Negative); Marijuana Negative (Negative); Methadone Negative (Negative); Methamphetamines Negative (Negative); Opiates Negative (Negative); Phencyclidine Negative (Negative); Tricyclic Antidepressants Negative (Negative)
[2023-12-20 03:00] VITALS: BP 99/81
[2023-12-20 03:25] LABS: Alcohol 401 mg/dl
--- NOTE | 2023-12-20 03:29 | EDRN ---
Report received, spoke with [facility] about patient who is in talking to patient now
--- NOTE | 2023-12-20 03:47 | EDRN ---
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
that's why shes talking with crystal from [facility] for rehab, patient begins to raise her voice and get upset about detox, and informed her again thats why [facility] was in to see her to try to help her get into rehab.
--- NOTE | 2023-12-20 05:34 | EDRN ---
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
here later if discharged, and informed her that [facility] offered rehab but she wasn't willing to, Dr. Faustin aware, patient has called me back into room several times, stating she doesn't feel well, patients MSAS was 2 at last check.
--- NOTE | 2023-12-20 06:10 | EDRN ---
Informed patient the Doctor ordered for her to have 1mg of Ativan now, however plan is still for discharge since she isn't wanting to go to rehab, patient stating she needs to leave now then to go to another hospital, took patients IVs out so she
could get dressed, Dr. Faustin is aware and working on paperwork for her.
--- NOTE | 2023-12-20 06:39 | EDRN ---
Patient walked out without taking her discharge paperwork, patient ambulated out with steady gate and with her boyfriend.
== END 2023-12-20 06:44 | disposition home or self-care (01) ==
LOC: EMR 20:42
PROVIDERS: Emergency Medicine; EMERGENCY PHYSICIAN Emergency Medicine
DX: F10.10 Alcohol abuse, uncomplicated (principal)
CPT/HCPCS: 99284; 96374; 96375 ×2; 96361; 96376; 80053; 80306; 82077; 84703; 85025

== ENCOUNTER 2024-02-07 18:33 | Emergency (ER) | payer OTHER, SELFPAY ==
[2024-02-07 18:38] VITALS: BP 136/92
[2024-02-07 18:46] VITALS: BMI 32.9
--- NOTE | 2024-02-07 19:14 | ED.GENMED ---
History of Present Illness
General
Chief Complaint: Alcohol Problem
Time Seen by Provider: 02/07/24 19:14
Travel History
Have you had any contact with someone who has COVID-19?: No
Do you have any symptoms of coronavirus? Fever > 100 degrees, chills, cough, shortness of breath, sore throat, loss of taste or smell, muscle aches, or headache?: No
History of Present Illness
History of Present Illness:
HPI: The patient presents with alcohol related concerns. As a walk in the room at 7:15 PM, she is screaming and is not much of a historian. I am told by the nurse that the patient was at [facility] earlier and left and came in by ambulance. The
patient feels that she needs phenobarbital.
EXAM:
GENERAL: The patient appears histrionic and is crying
HEENT: Moist oral mucosa
CARDIOVASCULAR: No murmurs, tachycardic heart rate, regular rhythm, No chest wall tenderness
PULMONARY: No respiratory distress, breath sounds are clear and equal
ABDOMEN: Soft with no peritoneal signs, no tenderness
NEUROLOGIC: Excellent strength all extremities, no coordination deficits
PSYCHIATRIC: As above
EXTREMITIES: Nontender, no edema, moves all extremities equally
SKIN: No rash, no lesions
TIME OF INITIAL ENCOUNTER: 7:15 PM
NUMBER AND COMPLEXITY OF PROBLEMS ADDRESSED AT THE ENCOUNTER
� Chronic conditions affecting care: Alcohol use disorder
� Acute Exacerbation and/or Progression of Chronic Illness: This is an acute but recurring problem
� Differential Diagnosis includes: Alcohol intoxication, alcohol withdrawal, psychosis
AMOUNT AND/OR COMPLEXITY OF DATA TO BE REVIEWED AND ANALYZED
� I performed an independent evaluation of and my interpretation is:
EKG:
CT:
X-rays:
Laboratory Studies: CBC unremarkable with exception of platelet count of 560, chemistries show bicarb 21�of note in November her bicarb is only 14, hCG negative, urinalysis unremarkable, UDS positive for barbiturates however we did
give him barbital upon arrival, alcohol 410
Other:
� Review of other/old records: I reviewed records, the patient was treated with IV phenobarbital and Ativan as well as other meds last in August and this past November
� Clinical information was obtained by an independent historian: I spoke to ED RN who spoke to boyiend
� Prescriptions/Medications Considered but not given:
� Further testing considered but not performed:
RISK OF COMPLICATIONS AND/OR MORBIDITY OR MORTALITY OF PATIENT MANAGEMENT
� Social determinants of health affecting care:
� Discussion with other providers: GREGORIO evaluated the patient in the ED shortly after arrival. I spoke to GREGORIO again at 2:30 AM and they will reassess at around 8:15 AM. GREGORIO tells me that she frequently gets placed and
then leaves AMA.
� Escalation of care including admission/observation vs risk of discharge considered: The patient's alcohol level was 410. Unlike prior medical admission she currently does not have metabolic acidosis based on the bicarb level.
Throughout her stay in the ED initially she had increasingly psychotic behavior screaming out of proportion to just alcohol intoxication�IM Zyprexa was given. On reassessment at 2:30 AM, the patient just complains of feeling hungry but she does
seem somewhat agitated still.
Past History
Past History
ED Past Medical History: Seizures, Psychiatric (Anxiety/depression) and Other (Alcohol abuse, alcohol withdrawal seizures, IBS, )
ED Past Surgical History: Orthopedic (Right knee)
Social History
Tobacco: Vaping
Alcohol: Daily (Wine 2-3 gallon bottles daily)
Drug: None
Personal: Single
Living: with family (Lives with significant other)
Employment: Not employed
Family History
Family History: Other (Both parents reportedly alcoholics)
Phy Exam
Physical Exam
Physical Exam:
See HPI
Scores
Withdrawal Assessment of Alcohol
Withdrawal Assessment Completed?: Not applicable
Course
Orders/Labs/Results
Orders:
Orders
02/07/24 19:12
Test Result ONCE
02/07/24 19:16
Alcohol Urgent
Complete Blood Count/With Diff Urgent
Comprehensive Metabolic Panel Urgent
HCG, Serum Qualitative Screen Urgent
Urinalysis Reflex To Culture Urgent
Date Specimen was Collected: 02/07/24
Time Specimen was Collected: 19:12
Urine Drug Abuse Screen Urgent
Date Specimen was Collected: 02/07/24
Time Specimen was Collected: 19:12
02/07/24 19:19
Lorazepam [Ativan] 2 mg IV NOW STA
Phenobarbital Sodium [Phenobarbital] 97.5 mg IV NOW STA
02/07/24 19:20
0.9% Sodium Chloride 1000 ml [Nss] 1,000 ml IV BOLUS
02/07/24 19:57
Olanzapine [Zyprexa] 10 mg IM NOW STA
02/07/24 22:14
Olanzapine [Zyprexa] 10 mg .ROUTE .STK-MED ONE
02/07/24 22:16
Sterile Water [Sterile Water For Injection] 10 ml .ROUTE .STK-MED ONE
Abnormal Lab Results
02/07/24
19:16
Plt Count 560 H 10^3/uL
(130-400)
Absolute Lymphs (auto) 4.8 H 10^3/uL
(1.2-3.4)
Neutrophils % 36.7 L %
(42.2-75.2)
Lymphocytes % 55.2 H %
(20.5-51.1)
Carbon Dioxide 21 L mmol/L
(22-30)
Glucose 108 H mg/dl
(70-99)
AST 107 H U/L
(14-36)
ALT 158 H U/L
(0-35)
Ur Barbiturates Screen Positive H
(Negative)
Alcohol, Quantitative 410 H* mg/dl
02/07/24 19:16
02/07/24 19:16
Vital Signs
Initial and Last Documented VS:
Initial Vital Signs
Temp Pulse Resp BP Pulse Ox
98.0 F 122 22 136/92 95
02/07/24 18:38 02/07/24 18:38 02/07/24 18:38 02/07/24 18:38 02/07/24 18:38
Last Documented Vital Signs
Temp Pulse Resp BP Pulse Ox
98.0 F 111 15 136/92 95
02/07/24 18:38 02/07/24 18:45 02/07/24 18:45 02/07/24 18:38 02/08/24 00:45
*Critical Care Note
Total Time (30-74mins, 75-104mins- exclusive of procedures): Not Applicable
ED Attending Note
-
Portions of this chart may have been created with voice recognition software.� Occasional wrong word or��sound alike� substitutions may have occurred due to the inherent limitations of voice recognition software.
Discharge Plan
Departure
Patient Disposition: Acute Rehab Facility
Date of Disposition: 02/08/24
Time of Disposition: 02:25
Discharge Problem:
Alcohol use disorder
Prescriptions:
No Action
folic acid 1 mg tablet
1 mg PO DAILY
naltrexone 50 mg Tablet
50 mg PO HS
cyanocobalamin (vitamin B-12) 1,000 mcg Tablet
1,000 mcg PO DAILY
gabapentin 600 mg tablet
600 mg PO TID
prazosin 1 mg capsule
1 mg PO HS
melatonin 10 mg tablet
10 mg PO HS PRN (Reason: sleep)
thiamine HCl (vitamin B1) 100 mg Tablet
100 mg PO BID Qty: 60 0RF
pantoprazole 40 mg Tablet,Delayed Release (Dr/Ec)
40 mg PO DAILY Qty: 15 0RF
magnesium oxide 500 mg magnesium Tablet
500 mg PO DAILY Qty: 0 0RF
ondansetron HCl 4 mg tablet
4 mg PO DAILY PRN (Reason: nausea) 5 Days Qty: 5 0RF
Referrals:
NONE,* [Family Provider] -
Interventions
Interventions:
*Risk Screen - Suicide Last Done: 02/07/24 18:38
*General Assessment Last Done: 02/07/24 18:38
*Neglect/Abuse Screening Last Done: 02/07/24 18:38
ED- Neurological Assessment Last Done: 02/07/24 20:16
ED-Psychological Assessment Last Done: 02/07/24 20:16
Discharge Date and Time
Print Language: ANDORRAN
[2024-02-07 19:22] LABS: % Eosinophils 0.5 % (0-6); % Immature Granulocytes 0.5 % (0-0.5); % Lymphocytes 55.2 % (20.5-51.1); % Monocytes 6.1 % (1.7-9.3); % Neutrophils 36.7 % (42.2-75.2); Absolute Basophils 0.1 10^3/uL (0-0.2); Absolute Lymphocytes 4.8 10^3/uL (1.2-3.4); Absolute Monocytes 0.5 10^3/uL (0.1-0.6); Absolute Neutrophils 3.2 10^3/uL (1.4-6.5); Hematocrit 39.9 % (37.0-47.0); Hemoglobin 14.4 g/dL (12.0-16.0); Mean Corp Hgb Conc. 36.1 g/dL (33.0-37.0); Mean Corpuscular Hgb 30.4 pg (27.0-31.0); Mean Corpuscular Volume 84.4 fL (81.0-99.0); Mean Platelet Volume 8.5 fL (7.4-10.4); Nucleated Red Blood Cells % 0 %; Platelet Count 560 10^3/uL (130-400); Red Blood Cell Count 4.73 10^6/uL (4.20-5.40); Red Cell Dist. Width 13.4 % (11.5-14.5); White Blood Cell Count 8.7 10^3/uL (4.8-10.8)
[2024-02-07 19:23] LABS: Urine Albumin Negative (Neg - Trace); Urine Bilirubin Negative (Negative); Urine Character Clear (Clear); Urine Color Yellow; Urine Glucose Negative (Negative); Urine Ketone Negative (Negative); Urine Leukocyte Negative (Negative); Urine Nitrite Negative (Negative); Urine Occult Blood Negative (Negative); Urine Urobilinogen Negative (Neg - 1+)
[2024-02-07] MEDS: ATIVAN 2 MG IV (19:25)
[2024-02-07] MEDS: PHENOBARBITAL 97.5 MG IV (19:25)
[2024-02-07 19:42] LABS: Amphetamines Negative (Negative); Barbiturates Positive (Negative); Benzodiazepines Negative (Negative); Buprenorphine Negative (Negative); Cocaine Negative (Negative); Marijuana Negative (Negative); Methadone Negative (Negative); Methamphetamines Negative (Negative); Opiates Negative (Negative); Phencyclidine Negative (Negative); Tricyclic Antidepressants Negative (Negative)
[2024-02-07 19:45] LABS: HCG, Serum Qualitative Screen Negative
[2024-02-07 19:49] LABS: ALT (SGPT) 158 U/L (0-35); AST (SGOT) 107 U/L (14-36); Albumin 4.4 g/dl (3.5-5.0); Alkaline Phosphatase 99 U/L (38-126); Blood Urea Nitrogen 9 mg/dl (7-17); Calcium 8.4 mg/dl (8.4-10.2); Carbon Dioxide 21 mmol/L (22-30); Chloride 107 mmol/L (98-107); Estimated Creatinine Clearance > 125 ml/min; Glucose 108 mg/dl (70-99); Sodium 144 mmol/L (135-145); Total Bilirubin 0.3 mg/dl (0.2-1.3); Total Protein 7.1 g/dl (6.3-8.2); eGFR > 60.00
[2024-02-07 19:54] LABS: Potassium 4.2 mmol/L (3.5-5.1)
[2024-02-07 20:09] LABS: Alcohol 410 mg/dl
[2024-02-07] MEDS: ZYPREXA 10 MG IM (22:19)
[2024-02-08 06:27] VITALS: BP 115/82
--- NOTE | 2024-02-08 10:06 | ED.CRISIS ---
ED Crisis Note
ED Crisis Note
Subjective:
Pt arrived intoxicated last night. Pt was evaluated by GREGORIO. She declines detox. I have just checked on pt who confirms she does not want detox.
Objective:
Awake. Calm.
Mild tremors.
Assessment/Plan:
Pt can be discharged as there are no emergent issues. Given pt is not going to participate in detox there is no benefit to starting treatment for withdraw as pt is going to resume alcohol consumption. Should pt be stuck here w/o a way to leave she
may require a dose to prevent significant w/d.
[2024-02-08] MEDS: ATIVAN 2 MG PO (10:25)
[2024-02-08] MEDS: ZOFRAN ODT (ORALLY DISINTEGRATING) 8 MG PO (10:25)
== END 2024-02-08 10:55 ==
LOC: EMR 18:33
PROVIDERS: EMERGENCY PHYSICIAN Emergency Medicine
DX: F10.10 Alcohol abuse, uncomplicated (principal); F17.290 Nicotine dependence, other tobacco product, uncomplicated
CPT/HCPCS: 99285; 96374; 96375; 96372; 80053; 80306; 81003; 82077; 84703; 85025; 93005; J2358

== ENCOUNTER 2024-03-29 14:06 | Emergency (ER) | payer OTHER, SELFPAY ==
[2024-03-29 14:19] VITALS: BP 113/82
--- NOTE | 2024-03-29 14:22 | ED.GENMED ---
History of Present Illness
General
Chief Complaint: Alcohol Problem
Source: patient and ambulance crew
Time Seen by Provider: 03/29/24 14:07
History of Present Illness
History of Present Illness:
24yoF with a history of alcohol abuse presenting via EMS for evaluation of an alcohol problem. Patient has a history of heavy alcohol use. She was just discharged from [place] yesterday for inpatient detox. Since being discharged, patient admits
to drinking vodka. She is unable to quantify how much alcohol she's drank. She states 'just a little bit.' Her boyfriend called EMS today because he was reportedly uncomfortable with her being at home alone. Patient has no complaints at this time
and states she wants to go home. She is declining detox and rehab currently.
Past History
Past History
ED Past Medical History: Seizures, Psychiatric (Anxiety/depression) and Other (Alcohol abuse, alcohol withdrawal seizures, IBS, )
ED Past Surgical History: Orthopedic (Right knee)
Social History
Tobacco: Vaping
Alcohol: Daily (Wine 2-3 gallon bottles daily)
Drug: None
Personal: Single
Living: with family (Lives with significant other)
Employment: Not employed
Family History
Family History: Other (Both parents reportedly alcoholics)
Phy Exam
Physical Exam
Physical Exam:
Patient clinically intoxicated. GCS is 15 and she is maintaining airway. Patient oriented to person, place, and time.
General Physical Exam
General Presentation: well appearing and no apparent distress
General Skin: warm and dry
Eye Exam
Eye Exam: PERRL
Cardiovascular Exam
Cardiovascular Exam: regular rate/rhythm and no murmur
Pulmonary Exam
Pulmonary Exam: lungs clear, no respiratory distress, no crackles and no wheezing
Gastrointestinal Exam
Gastrointestinal Exam: non tender, soft and non distended
Skin Exam
Skin Exam: normal color and warm/dry
Scores
Withdrawal Assessment of Alcohol
Withdrawal Assessment Completed?: No
Course
Orders/Labs/Results
Orders:
Orders
03/29/24 14:35
EKG- Treatment ONCE
Alcohol Urgent
Complete Blood Count/With Diff Urgent
Comprehensive Metabolic Panel Urgent
HCG, Serum Qualitative Screen Urgent
Test Result ONCE
Vital Signs
Initial and Last Documented VS:
Initial Vital Signs
Temp Pulse Resp BP Pulse Ox
98.6 F 121 16 113/82 95
03/29/24 14:19 03/29/24 14:19 03/29/24 14:19 03/29/24 14:19 03/29/24 14:19
Last Documented Vital Signs
Temp Pulse Resp BP Pulse Ox
98.6 F 86 16 113/82 97
03/29/24 14:19 03/29/24 15:54 03/29/24 14:19 03/29/24 14:19 03/29/24 15:54
MDM/Problems Addressed
Differential Diagnosis Includes:
24yoF presenting for alcohol intoxication. Just discharged from inpatient detox yesterday. [employer] called EMS due to not being comfortable with patient being at home. She has a history of withdrawal seizures in the past. Patient is clinically
intoxicated although she is A&Ox3 and maintaining airway. HR is 121, remainder of vitals stable. Differential diagnosis includes but is not limited to: alcohol intoxication, electrolyte abnormality, dehydration
Initial ED plan: Check CBC, CMP, ETOH, and EKG. IV fluid bolus.
*Critical Care Note
Total Time (30-74mins, 75-104mins- exclusive of procedures): Not Applicable
Update Note
Update Note:
Patient is adamantly refusing lab work. She is not interested in detox or rehab currently. Boyienmeggan came to bedside. Boyfriend is now agreeable to take patient home and monitor her at home. AMA paperwork signed. Advised return to the ED with any
withdrawal seizures or worsening symptoms.
ED Attending Note
-
Portions of this chart may have been created with voice recognition software.� Occasional wrong word or��sound alike� substitutions may have occurred due to the inherent limitations of voice recognition software.
Discharge Plan
Departure
Patient Disposition: Against Medical Advice
Date of Disposition: 03/29/24
Time of Disposition: 15:40
Patient with high blood pressure during this ER visit?: No
Discharge Problem:
Alcohol intoxication
Instructions: Alcohol Use Disorder (DC)
Prescriptions:
No Action
folic acid 1 mg tablet
1 mg PO DAILY
naltrexone 50 mg Tablet
50 mg PO HS
cyanocobalamin (vitamin B-12) 1,000 mcg Tablet
1,000 mcg PO DAILY
gabapentin 600 mg tablet
600 mg PO TID
prazosin 1 mg capsule
1 mg PO HS
melatonin 10 mg tablet
10 mg PO HS PRN (Reason: sleep)
thiamine HCl (vitamin B1) 100 mg Tablet
100 mg PO BID Qty: 60 0RF
pantoprazole 40 mg Tablet,Delayed Release (Dr/Ec)
40 mg PO DAILY Qty: 15 0RF
magnesium oxide 500 mg magnesium Tablet
500 mg PO DAILY Qty: 0 0RF
ondansetron HCl 4 mg tablet
4 mg PO DAILY PRN (Reason: nausea) 5 Days Qty: 5 0RF
Referrals:
NONE,* [Family Provider] -
Activity Restrictions/Additional Instructions:
Please follow-up with your family doctor. Return to the ER with any worsening symptoms or withdrawal seizures.
Interventions
Interventions:
*Risk Screen - Suicide Last Done: 03/29/24 14:21
*General Assessment Last Done: 03/29/24 14:21
*Neglect/Abuse Screening Last Done: 03/29/24 14:21
*Nursing Disposition Last Done: 03/29/24 15:54
ED- Neurological Assessment Last Done: 03/29/24 15:54
ED-Psychological Assessment Last Done: 03/29/24 15:54
Discharge Date and Time
Discharge Date/Time: 03/29/24 16:01
Print Language: NAURUAN
== END 2024-03-29 16:01 | disposition left against medical advice (07) ==
LOC: EMR 14:06
PROVIDERS: EMERGENCY PHYSICIAN Emergency Medicine
DX: F10.129 Alcohol abuse with intoxication, unspecified (principal); F17.290 Nicotine dependence, other tobacco product, uncomplicated; K58.9 Irritable bowel syndrome, unspecified; G40.909 Epilepsy, unspecified, not intractable, without status epilepticus; F41.8 Other specified anxiety disorders
CPT/HCPCS: 99282